=== PATIENT | female | born 1955 | race Caucasian/White ===

== ENCOUNTER 2017-01-15 10:34 | Emergency (ER) | payer BC ==
[~2017-01-15] VITALS: Ht 170.2 cm; Wt 81.6 kg
--- NOTE | 2017-01-15 10:45 | EKG ---
[facility] [address] [place] [address] Test Date: 2017-01-15 Test Time: 10:41:29 Pat Name: TAYLOR LUIS Department: Room: Gender: F Manager Copy: : 1955 Requested By: KEVIN COATES Order Number: [id number] Reading MD: Measurements Intervals [place] Rate: 80 P: 52 VT: 136 QRS: -21 QRSD: 82 T: 111 QT: 408 QTc: 474 Interpretive Statements SINUS RHYTHM LEFT ATRIAL ABNORMALITY LEFTWARD AXIS T ABNORMALITY IN HIGH LATERAL LEADS PROLONGED QT RI6.01 Unconfirmed report No previous ECG available for comparison
--- NOTE | 2017-01-15 11:05 | PHYS DOC ---
Past Medical History Past Medical History: Diabetes-Type II, Hypertension Past Surgical History: Hysterectomy, Tonsillectomy, Other Additional Past Surgical Histo: KNEE X 2 Alcohol Use: None Drug Use: None Adult General Chief Complaint Chief Complaint: dizzy, headache HPI HPI Patient is a 61 year old female who presents with dizziness. Patient states she woke up with "the room's pain my head aching". It does worsen when she moves around but is still present when she lays still. Denies previous similar symptoms, no recent illness. She admits that she has a history of diabetes and hypertension and has not been taking her medications for over a year due to financial reasons. Previously seen by Dr. Haven Campoverde but hasn't seen her in 2 years. She came in by EMS. Denies any focal weakness. Review of Systems Review of Systems Constitutional: Denies fever or chills [] Eyes: Denies change in visual acuity, redness, or eye pain [] HENT: Denies nasal congestion or sore throat [] Respiratory: Denies cough or shortness of breath [] Cardiovascular: Denies chest pain GI: Denies abdominal pain, nausea, vomiting, bloody stools or diarrhea [] : Denies dysuria or hematuria [] Musculoskeletal: Denies back pain or joint pain [] Integument: Denies rash or skin lesions [] Neurologic: Per history of present illness Current Medications Current Medications Current Medications Medications (Trade) Dose Ordered Sig/Kenyatta Start Time Stop Time Status Last Admin Dose Admin Diazepam (Valium) 2.5 mg 1X ONCE 01/15/17 13:30 01/15/17 13:31 DC 01/15/17 13:27 2.5 MG Hydralazine HCl (Apresoline) 10 mg 1X ONCE 01/15/17 11:15 01/15/17 11:16 DC 01/15/17 11:17 10 MG Meclizine HCl (Antivert) 25 mg 1X ONCE 01/15/17 11:15 01/15/17 11:16 DC 01/15/17 11:15 25 MG Allergies Allergies Allergies Coded Allergies Type Severity Reaction Last Updated Verified No Known Drug Allergies 01/15/17 No Physical Exam Physical Exam Constitutional: Well developed, well nourished, no acute distress, non-toxic appearance. [] HENT: Normocephalic, atraumatic, bilateral external ears normal, oropharynx moist, no oral exudates, nose normal. [] Eyes: PERRLA, EOMI, conjunctiva normal, no discharge. [] Neck: Normal range of motion, no tenderness, supple, no stridor. [] Cardiovascular:Heart rate regular rhythm, no murmur [] Lungs & Thorax: Bilateral breath sounds clear to auscultation [] Abdomen: Bowel sounds normal, soft, no tenderness, no masses, no pulsatile masses. [] Skin: Warm, dry, no erythema, no rash. [] Back: No tenderness, no CVA tenderness. [] Extremities: No tenderness, no cyanosis, no clubbing, ROM intact, no edema. [] Neurologic: Alert and oriented X 3, normal motor function, normal sensory function, no focal deficits noted. 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 Psychologic: Affect normal, judgement normal, mood normal. [] Current Patient Data Vital Signs Vital Signs Date Time Temp Pulse Resp B/P (MAP) Pulse Ox O2 Delivery O2 Flow Rate FiO2 01/15/17 14:10 90 17 185/89 (121) 95 Room Air 01/15/17 10:34 97.5 97.5 Lab Values Laboratory Tests Test 01/15/17 11:01 01/15/17 11:40 01/15/17 13:00 Glucose (Fingerstick) 287 mg/dL (70-99) H White Blood Count 9.6 x10^3/uL (4.0-11.0) Red Blood Count 4.98 x10^6/uL (3.50-5.40) Hemoglobin 15.0 g/dL (12.0-15.5) Hematocrit 45.0 % (36.0-47.0) Mean Corpuscular Volume 90 fL (79-100) Mean Corpuscular Hemoglobin 30 pg (25-35) Mean Corpuscular Hemoglobin Concent 33 g/dL (31-37) Red Cell Distribution Width 13.7 % (11.5-14.5) Platelet Count 243 x10^3/uL (140-400) Neutrophils (%) (Auto) 77 % (31-73) H Lymphocytes (%) (Auto) 16 % (24-48) L Monocytes (%) (Auto) 6 % (0-9) Eosinophils (%) (Auto) 1 % (0-3) Basophils (%) (Auto) 0 % (0-3) Neutrophils # (Auto) 7.3 x10^3uL (1.8-7.7) Lymphocytes # (Auto) 1.5 x10^3/uL (1.0-4.8) Monocytes # (Auto) 0.6 x10^3/uL (0.0-1.1) Eosinophils # (Auto) 0.1 x10^3/uL (0.0-0.7) Basophils # (Auto) 0.0 x10^3/uL (0.0-0.2) Sodium Level 139 mmol/L (136-145) Potassium Level 4.4 mmol/L (3.5-5.1) Chloride Level 99 mmol/L (98-107) Carbon Dioxide Level 33 mmol/L (21-32) H Anion Gap 7 (6-14) Blood Urea Nitrogen 11 mg/dL (7-20) Creatinine 0.7 mg/dL (0.6-1.0) Estimated GFR (Cockcroft-Gault) 84.8 BUN/Creatinine Ratio 16 (6-20) Glucose Level 307 mg/dL (70-99) H Calcium Level 9.6 mg/dL (8.5-10.1) Magnesium Level 1.9 mg/dL (1.8-2.4) Total Bilirubin 0.4 mg/dL (0.2-1.0) Aspartate Amino Transferase (AST) 24 U/L (15-37) Alanine Aminotransferase (ALT) 32 U/L (14-59) Alkaline Phosphatase 127 U/L (46-116) H Troponin I Quantitative < 0.017 ng/mL (0.000-0.055) Total Protein 7.4 g/dL (6.4-8.2) Albumin 3.7 g/dL (3.4-5.0) Albumin/Globulin Ratio 1.0 (1.0-1.7) Urine Collection Type Unknown Urine Color Yellow Urine Clarity Clear Urine pH 7.0 Urine Specific [place] 1.015 Urine Protein Negative mg/dL (NEG-TRACE) Urine Glucose (UA) >=1000 mg/dL (NEG) Urine Ketones (Stick) Trace mg/dL (NEG) Urine Blood Negative (NEG) Urine Nitrite Negative (NEG) Urine Bilirubin Negative (NEG) Urine Urobilinogen Dipstick 0.2 mg/dL (0.2 mg/dL) Urine Leukocyte Esterase Negative (NEG) Urine RBC 0 /HPF (0-2) Urine WBC Rare /HPF (0-4) Urine Squamous Epithelial Cells Many /LPF Urine Bacteria 0 /HPF (0-FEW) Laboratory Tests 01/15/17 11:40 Laboratory Tests 01/15/17 11:40 EKG EKG 80 bpm, sinus, normal axis, QTC of 474, no ST elevation or depression, T-wave inversion in aVL, biphasic T-wave in 1, interpreted by me[] Radiology/Procedures Radiology/Procedures CT head: IMPRESSION: No acute intracranial abnormality is detected. [] Course & Med Decision Making Course & Med Decision Making Pertinent Labs and Imaging studies reviewed. (See chart for details) She was given IV meclizine and hydralazine. I counseled patient on the need to take hypertension medication as prescribed and follow-up with primary care physician. Pt reported improvement of symptoms. She was able to walk to the bathroom and to discharge patient home when symptoms returned. IV Valium was given and patient was observed for another period of time. She now felt good to go home, CT and lab work negative with exception of elevated blood sugar. I again counseled patient on the need to take medications and follow-up with primary care physician. I rewrote her for lisinopril and metformin and instructed her to follow up with her doctor in the next week. Patient was also given prescription for meclizine. Dragon Disclaimer Dragon Disclaimer This electronic medical record was generated, in whole or in part, using a voice recognition dictation system. Departure Departure Impression: Primary Impression: Vertigo Additional Impressions: Hypertension Hyperglycemia Medical non-compliance Disposition: HOME, SELF-CARE Condition: STABLE Scripts Metformin Hcl (METFORMIN HCL) 500 Mg Tablet 500 MG PO BIDWMEALS for ANTI-DIABETIC, #60 TAB 0 Refills After 1 week increase to 2 tabs po bid Prov: KEVIN COATES MD 01/15/17 Lisinopril (LISINOPRIL) 10 Mg Tablet 1 TAB PO DAILY, #30 TAB 0 Refills Prov: KEVIN COATES MD 01/15/17 Meclizine Hcl (MECLIZINE HCL) 25 Mg Tablet 25 MG PO PRN TID Y for DIZZINESS, #30 TAB dizziness Prov: KEVIN COATES MD 01/15/17 Problem Qualifiers KEVIN COATES MD Jan 15, 2017 11:05
[2017-01-15] MEDS ORDERED: MECLIZINE HCL 12.5 MG TABLET. PO ONE (11:15)
[2017-01-15] MEDS ORDERED: hydrALAZINE 20 MG/ML VIAL. IVP ONE (11:15)
[2017-01-15 11:59] LABS: BASO % 0 % (0-3); EOS % 1 % (0-3); LYMPH # 1.5 x10^3/uL (1.0-4.8); LYMPH % 16 % (24-48); MEAN CORPUSCULAR HEMOGLOBIN 30 pg (25-35); MEAN CORPUSCULAR HGB CONC 33 g/dL (31-37); MEAN CORPUSCULAR VOLUME 90 fL (79-100); MONO % 6 % (0-9); NEUT % 77 % (31-73); PLATELET COUNT 243 x10^3/uL (140-400); RED BLOOD COUNT 4.98 x10^6/uL (3.50-5.40); RED CELL DISTRIBUTION WIDTH 13.7 % (11.5-14.5); WHITE BLOOD COUNT 9.6 x10^3/uL (4.0-11.0)
[2017-01-15 12:06] LABS: CALCIUM 9.6 mg/dL (8.5-10.1); CREATININE 0.7 mg/dL (0.6-1.0); GFR 84.8; POTASSIUM 4.4 mmol/L (3.5-5.1)
--- NOTE | 2017-01-15 12:06 | RAD ---
CT of the head without contrast, 01/15/2017: History: Dizziness, headache The ventricles are within normal limits in size. There is no shift of the midline structures. There is no evidence of acute intracranial hemorrhage or mass effect. IMPRESSION: No acute intracranial abnormality is detected. PQRS Compliance Statement: One or more of the following individualized dose reduction techniques were utilized for this examination: 1. Automated exposure control 2. Adjustment of the mA and/or kV according to patient size 3. Use of iterative reconstruction technique
[2017-01-15 12:13] LABS: ALBUMIN 3.7 g/dL (3.4-5.0); MAGNESIUM 1.9 mg/dL (1.8-2.4); TOTAL BILIRUBIN 0.4 mg/dL (0.2-1.0); TOTAL PROTEIN 7.4 g/dL (6.4-8.2)
[2017-01-15] MEDS ORDERED: METF500T4 PO (13:08)
[2017-01-15] MEDS ORDERED: MECL25TA3 PO (13:08)
[2017-01-15] MEDS ORDERED: LISI10TA2 PO (13:08)
[2017-01-15 13:48] LABS: BILIRUBIN,URINE NEGATIVE (NEG); GLUCOSE,URINE >=1000 mg/dL (NEG); NITRITE,URINE NEGATIVE (NEG); PROTEIN,URINE NEGATIVE (NEG-TRACE); UROBILINOGEN,URINE 0.2 mg/dL (0.2 mg/dL)
[2017-01-15 14:02] LABS: BACTERIA,URINE 0 /HPF (0-FEW); RBC,URINE 0 /HPF (0-2); SQUAMOUS EPITHELIAL CELL,UR MANY /LPF; WBC,URINE RARE /HPF (0-4)
[2017-01-15 14:10] VITALS: BP 185/89
== END 2017-01-15 14:14 | disposition home or self-care (01) ==
LOC: ER 10:34
DX: I10 Essential (primary) hypertension (principal); E11.65 Type 2 diabetes mellitus with hyperglycemia; Z91.19 Patient's noncompliance with other medical treatment and regimen; Z90.710 Acquired absence of both cervix and uterus
CPT/HCPCS: 36415; 70450; 80053; 81001; 82962; 83735; 84484; 85025; 93005; 96374; 96375; 99285; J0360; J3360; J8597

== ENCOUNTER → 2017-01-17 | Outpatient (CLI) | payer BC ==
[2017-01-15 14:10] VITALS: BP 185/89
[~2017-01-17] MED LIST: LISI10TA2 PO; MECL25TA3 PO; METF500T4 PO
--- NOTE | 2017-01-17 12:17 | RAD ---
DATE: 01/17/2017 EXAM: MAMMO [facility] SCREENING BILATERAL HISTORY: Screening COMPARISON: None. FINDINGS: Breast Density: SCATTERED The breast parenchyma shows scattered fibroglandular densities. Breast parenchyma level B. No dominant mass is seen in either breast. Lymph nodes are noted in the right axilla. Benign-appearing calcifications are noted. IMPRESSION: Benign finding BI-RADS CATEGORY: 2 BENIGN FINDING(S) RECOMMENDED FOLLOW-UP: 12M 12 MONTH FOLLOW-UP PQRS compliance statement: Patient information was entered into a reminder system with a target due date 01/17/2018 for the next mammogram. Mammography is a sensitive method for finding small breast cancers, but it does not detect them all and is not a substitute for careful clinical examination. A negative mammogram does not negate a clinically suspicious finding and should not result in delay in biopsying a clinically suspicious abnormality. "Our facility is accredited by the [employer] Mammography Program."
== END | disposition home or self-care (01) ==
LOC: KCIC MAMMO 10:01
PROVIDERS: ATTEND Family Medicine
DX: Z12.31 Encounter for screening mammogram for malignant neoplasm of breast (principal)
CPT/HCPCS: 77063; G0202; 77067

== ENCOUNTER → 2019-08-19 | Outpatient (CLI) | payer BC ==
[~2019-08-19] MED LIST changes: +AMLO2.5T5 PO; +ATOR80TA72 PO; +HYDR12.58 PO; +IOHEXOL 240 MG/ML 50ML VIAL. PO ONE; +IOHEXOL 300 MG/ML 100ML VIAL. IV ONE; +LOSA-73 PO; +MECL-75 PO; -MECL25TA3 PO; +METF500T16 PO; -METF500T4 PO; +SITA50TA PO
--- NOTE | 2019-08-19 12:12 | KCIC ---
CT ABDOMEN W/CONTRAST History: Left upper quadrant abdominal pain for 2 weeks Comparison: None. Technique: After administration of intravenous contrast, helical CT of the abdomen was performed. Coronal and sagittal reconstructions were obtained. 100 mL of Isovue-370 were used. One or more of the following dose reduction techniques were utilized: Automated exposure control (AEC), Adjustment of mA and/or kV according to patient size, Use of iterative reconstruction technique such as ASiR, CT scan done according to ALARA and image gently/image wisely Abdomen Findings: The visualized lung bases are clear. Right hepatic circumscribed hypodensity measuring 1.3 cm, likely a cyst or hemangioma. The liver, gallbladder, pancreas, spleen, and bilateral adrenal glands are otherwise normal. Symmetric renal enhancement. There is no hydronephrosis. The visualized loops of small bowel are normal. The visualized loops of large bowel are normal. There is no free fluid. There is no mesenteric or retroperitoneal adenopathy. The abdominal aorta is normal in caliber. Mild aortic atherosclerotic disease. IMPRESSION: No acute findings Electronically signed by: Junaid Wiley MD (08/19/2019 12:09 PM) [id number]
== END ==
LOC: KCIC CT 09:45
PROVIDERS: ATTEND Emergency Medicine
DX: I70.0 Atherosclerosis of aorta (principal)
CPT/HCPCS: 74160; 82565; Q9966; Q9967

== ENCOUNTER 2020-05-16 20:40 | Inpatient (IN) | payer BC, MEDICARE ==
[~2020-05-16] VITALS: Ht 167.6 cm; Wt 72.2 kg
[~2020-05-16 20:40] MED LIST changes: -IOHEXOL 240 MG/ML 50ML VIAL. PO ONE; -IOHEXOL 300 MG/ML 100ML VIAL. IV ONE; +LISI10TA16 PO; -LISI10TA2 PO
--- NOTE | 2020-05-16 21:04 | PHYS DOC ---
Past Medical History Past Medical History: Diabetes-Type II, Hypertension Past Surgical History: Hysterectomy, Tonsillectomy, Other Additional Past Surgical Histo: KNEE X 2 Smoking Status: Never Smoker Alcohol Use: None Drug Use: None General Adult HPI: HPI: Patient is a 65 year old female with a history of diabetes type 2, hypertension, who presents the ED today complaining of mild to moderate intermittent bilateral lower chest pain wrapping around her back, symptoms have been going on for 3 weeks and got worse today. Patient states the pain is sharp and constant. She states the pain is worse when she is propelling herself in a wheelchair. Patient denies anything relieving her pain. Patient reports following up with her PCP for this pain and was started on hydrocodone, tizanidine, gabapentin and meloxicam. She states none of this medications are helping. She states also the PCP did a big work-up on her which she felt was not helpful because it was negative. Denies any fever, cough, chest pain, pneumaturia, urgency frequency or dysuria. Review of Systems: Review of Systems: Constitutional: Denies fever or chills. [] Eyes: Denies change in visual acuity. [] HENT: Denies nasal congestion or sore throat. [] Respiratory: Denies cough or shortness of breath. [] Cardiovascular: Reports chest pain or edema. [] GI: Denies abdominal pain, nausea, vomiting, bloody stools or diarrhea. [] : Denies dysuria. [] Musculoskeletal: Denies back pain or joint pain. [] Integument: Denies rash. [] Neurologic: Denies headache, focal weakness or sensory changes. [] . [] Psychiatric: Denies depression or anxiety. [] Heart Score: HEART Score for Chest Pain: HEART Score for Chest Pain Response (Comments) Value History Slighlty/Non-Suspicious 0 ECG Normal 0 Age < 45 0 Risk Factors >3 Risk Factors or Hx CAD 2 Troponin < Normal Limit 0 Total 2 Risk Factors: Risk Factors: DM, Current or recent (<one month) smoker, HTN, HLP, family history of CAD, obesity. Risk Scores: Score 0 - 3: 2.5% MACE over next 6 weeks - Discharge Home Score 4 - 6: 20.3% MACE over next 6 weeks - Admit for Clinical Observation Score 7 - 10: 72.7% MACE over next 6 weeks - Early Invasive Strategies Current Medications: Current Medications Medications (Trade) Dose Ordered Sig/[facility] Start Time Stop Time Status Last Admin Dose Admin Aspirin (Min Aspirin) 325 mg 1X ONCE 05/16/20 21:00 05/16/20 21:01 UNV Sodium Chloride 1,000 ml @ 1,000 mls/hr 1X ONCE 05/16/20 21:00 05/16/20 21:59 UNV Allergies: Allergies: Allergies Coded Allergies Type Severity Reaction Last Updated Verified No Known Drug Allergies 01/15/17 No Physical Exam: PE: Constitutional: Well developed, well nourished, no acute distress, non-toxic appearance. [] HENT: Normocephalic, atraumatic, bilateral external ears normal, oropharynx moist, no oral exudates, nose normal. [] Eyes: PERRLA, EOMI, conjunctiva normal, no discharge. [] Neck: Normal range of motion, no tenderness, supple, no stridor. [] Cardiovascular:Heart rate regular rhythm, no murmur [] Lungs & Thorax: Reproducible pain around her bilateral anterior ribs all the way to her mid back on palpation. Patient seems to complain of pain even before touching her, bilateral breath sounds clear to auscultation [] Abdomen: Bowel sounds normal, soft, no tenderness, no masses, no pulsatile masses. [] Skin: Warm, dry, no erythema, no rash. [] Back: No tenderness, no CVA tenderness. [] Extremities: No tenderness, no cyanosis, no clubbing, ROM intact, no edema. [] Neurologic: Alert and oriented X 3, normal motor function, normal sensory function, no focal deficits noted. [] Psychologic: Flat affect, depressed mood EKG: EKG: [] Radiology/Procedures: Radiology/Procedures: []PROCEDURE: CT ANGIO CHEST ABD PELVIS Examination: CT angiography chest abdomen pelvis with IV contrast HISTORY: Pain, dissection COMPARISON: None available TECHNIQUE: Axial CT angiographic images of the chest abdomen pelvis were performed with IV contrast and coronal sagittal 3-D MIP reformats are performed. Exposure: One or more of the following individualized dose reduction techniques were utilized for this examination: 1. Automated exposure control 2. Adjustment of the mA and/or kV according to patient size 3. Use of iterative reconstruction technique FINDINGS: The visualized thyroid gland grossly appears unremarkable. Central airways are patent. The caliber of the aorta grossly appears unremarkable. No evidence of aortic dissection identified. The origin of the celiac, superior mesenteric, inferior mesenteric and bilateral renal arteries are patent. The bilateral kidneys enhance symmetrically. There is a cystic structure identified in the right lobe of the liver could be a cyst or hemangioma measuring 1.4 cm. The visualized spleen, pancreas grossly appears unremarkable. Mild hyperdensity identified in the upper esophagus best seen on series 3 image 20 could be hyperdense ingested material however blood in the esophagus is not completely excluded. The bilateral kidneys enhance symmetrically. The small bowel is nondilated. Moderate amount of stool identified throughout the colon. Urinary bladder is mildly distended Faint airspace opacities identified in the right middle lobe and bibasilar lungs likely atelectasis or infiltrates. Mild degenerative changes thoracic and lumbar spine. IMPRESSION: 1. No evidence of aortic dissection. 2.Mild hyperdensity identified in the upper esophagus best seen on series 3 image 20 could be hyperdense ingested material however blood in the esophagus is not completely excluded 3. Linear airspace opacities identified in the right middle lobe of the bibasilar lungs likely atelectasis or infiltrates 4. A cystic structure identified in the right lobe of the liver could be a cyst or hemangioma measuring 1.4 cm. Electronically signed by: Tapan Peralta MD (05/16/2020 11:11 PM) [id number] DICTATED and SIGNED BY: TAPAN PERALTA MD DATE: 05/16/20 [id number] 0 Course & Med Decision Making: Course & Med Decision Making Pertinent Labs and Imaging studies reviewed. (See chart for details) This is a 65-year-old female patient presenting to the ED today complaining of bilateral lower chest pain radiating to her mid back, symptoms began 3 weeks ago, symptoms are worse when she is propelling herself [place] [facility]. She has been seen by her PCP and had a big work-up that she states was negative, she states she was started on hydrocodone, gabapentin, meloxicam and tizanidine which she states is not helping. She refused to take her hydrocodone today. Patient arrived in the ED with blood pressure of 89/52, heart rate of 64, height unknown if she took her blood pressure medicine prior to coming to the ED. EKG is negative, CBC with no acute findings, CMP with magnesium of 1.3. IV magnesium was ordered. CT angio of the chest abdomen and pelvis was done to rule out dissection, negative for dissection, CT also noted for mild hyperdensity identified in the upper esophagus best seen on series 3 image 20 could be hyperdense ingested material however blood in the esophagus is not completely excluded. Patient has no esophagus complaints. Airways open and currently tolerating her own secretions with no difficulties. CT also noted for opacities identified in the right middle lobe of the bibasilar lungs likely atelectasis or infiltrates and cystic structure identified in the right lobe of the liver could be a cyst or hemangioma measuring 1.4 cm. Admitted to the hospital. Dr. Monet will give morning doctor report. Routine consult placed for cardiology. Marisela Disclaimer: Marisela Disclaimer: This electronic medical record was generated, in whole or in part, using a voice recognition dictation system. Departure Departure Impression: Primary Impression: Chest pain Qualified Codes: R07.9 - Chest pain, unspecified Additional Impressions: Hypertension Qualified Codes: I10 - Essential (primary) hypertension Person under investigation for COVID-19 Disposition: 09 ADMITTED INPT THIS HOSP Condition: STABLE Referrals: YESSY BAUGH MD (PCP) JORDI VEGA APRN May 16, 2020 21:04
[2020-05-16 21:15] LABS: BASO # 0.1 x10^3/uL (0.0-0.2); BASO % 1 % (0-3); EOS # 1.1 x10^3/uL (0.0-0.7); EOS % 11 % (0-3); HEMATOCRIT 34.2 % (36.0-47.0); HEMOGLOBIN 11.7 g/dL (12.0-15.5); LYMPH # 1.8 x10^3/uL (1.0-4.8); LYMPH % 18 % (24-48); MEAN CORPUSCULAR HEMOGLOBIN 30 pg (25-35); MEAN CORPUSCULAR HGB CONC 34 g/dL (31-37); MEAN CORPUSCULAR VOLUME 89 fL (79-100); MONO # 0.5 x10^3/uL (0.0-1.1); MONO % 5 % (0-9); NEUT # 6.8 x10^3/uL (1.8-7.7); NEUT % 66 % (31-73); PLATELET COUNT 274 x10^3/uL (140-400); RED BLOOD COUNT 3.85 x10^6/uL (3.50-5.40); RED CELL DISTRIBUTION WIDTH 13.7 % (11.5-14.5); WHITE BLOOD COUNT 10.4 x10^3/uL (4.0-11.0)
[2020-05-16] MEDS ORDERED: ASPIRIN 325 MG TABLET PO ONE (21:15)
[2020-05-16] MEDS ORDERED: IV NORMAL SALINE 1000ML BAG 1,000 ML IV ONE (21:15)
[2020-05-16 21:23] LABS: PROTHROMBIN TIME PATIENT 12.3 SEC (11.7-14.0)
[2020-05-16 21:29] LABS: CALCIUM 9.2 mg/dL (8.5-10.1); CREATININE 1.2 mg/dL (0.6-1.0); GFR 44.9; POTASSIUM 4.7 mmol/L (3.5-5.1)
[2020-05-16 21:33] LABS: ALBUMIN 3.3 g/dL (3.4-5.0); MAGNESIUM 1.3 mg/dL (1.8-2.4); TOTAL BILIRUBIN 0.3 mg/dL (0.2-1.0); TOTAL PROTEIN 6.7 g/dL (6.4-8.2)
[2020-05-16] MEDS ORDERED: IOHEXOL 350 MG/ML 100 ML VIAL. IV ONE (21:45)
[2020-05-16] MEDS ORDERED: CONTRAST GIVEN. MC PRN (21:45)
[2020-05-16] MEDS ORDERED: MAGNESIUM SULFATE 1GM 100 ML IV ONE (21:45)
[2020-05-16 22:46] LABS: % BANDS 4 % (0-9); % EOS 13 % (0-5); % LYMPHS 16 % (24-48); % MONOS 1 % (0-10); % SEGS 66 % (35-66); PLT ESTIMATE ADEQUATE (ADEQUATE)
--- NOTE | 2020-05-16 23:14 | RAD ---
Examination: CT angiography chest abdomen pelvis with IV contrast HISTORY: Pain, dissection COMPARISON: None available TECHNIQUE: Axial CT angiographic images of the chest abdomen pelvis were performed with IV contrast a nd coronal sagittal 3-D MIP reformats are performed. Exposure: One or more of the following individualized dose reduction techniques were utilized for thi s examination: 1. Automated exposure control 2. Adjustment of the mA and/or kV according to patient size 3. Use of iterative reconstruction technique FINDINGS: The visualized thyroid gland grossly appears unremarkable. Central airways are patent. The caliber of the aorta grossly appears unremarkable. No evidence of aortic dissection identified. The origin of t he celiac, superior mesenteric, inferior mesenteric and bilateral renal arteries are patent. The bila teral kidneys enhance symmetrically. There is a cystic structure identified in the right lobe of the liver could be a cyst or hemangioma m easuring 1.4 cm. The visualized spleen, pancreas grossly appears unremarkable. Mild hyperdensity identified in the upp er esophagus best seen on series 3 image 20 could be hyperdense ingested material however blood in th e esophagus is not completely excluded. The bilateral kidneys enhance symmetrically. The small bowel is nondilated. Moderate amount of stool identified throughout the colon. Urinary bladder is mildly di stended Faint airspace opacities identified in the right middle lobe and bibasilar lungs likely atelectasis o r infiltrates. Mild degenerative changes thoracic and lumbar spine. IMPRESSION: 1. No evidence of aortic dissection. 2.Mild hyperdensity identified in the upper esophagus best seen on series 3 image 20 could be hyperde nse ingested material however blood in the esophagus is not completely excluded 3. Linear airspace opacities identified in the right middle lobe of the bibasilar lungs likely atelec tasis or infiltrates 4. A cystic structure identified in the right lobe of the liver could be a cyst or hemangioma measuri ng 1.4 cm. Electronically signed by: Tapan Peralta MD (05/16/2020 11:11 PM) [id number]
[2020-05-16] MEDS ORDERED: ONDANSETRON PF 4 MG/2 ML VIAL. IV PRN (23:30)
[2020-05-16] MEDS ORDERED: NITROGLYCERIN SUBLINGUAL 0.4 MG BOTTLE OF 25. SL PRN (23:30)
[2020-05-17 00:20] LABS: BILIRUBIN,URINE NEGATIVE (NEG); CLARITY,URINE CLEAR; COLOR,URINE YELLOW; NITRITE,URINE NEGATIVE (NEG); PROTEIN,URINE NEGATIVE (NEG-TRACE); UROBILINOGEN,URINE 0.2 mg/dL (0.2 mg/dL)
[2020-05-17 00:27] LABS: BARBITURATES NEG (NEG); BENZODIAZEPINES NEG (NEG); CANNABINOIDS NEG (NEG); COCAINE NEG (NEG); METHADONE NEG (NEG); OPIATES POS (NEG); PHENCYCLIDINE NEG (NEG)
[2020-05-17 00:29] LABS: BACTERIA,URINE 0 /HPF (0-FEW); RBC,URINE 0 /HPF (0-2)
[2020-05-17 00:32] LABS: AMPHETAMINE/METHAMPHETAMINE NEG (NEG)
[2020-05-17] MEDS: fentaNYL PF VIAL 100 MCG/2 ML VIAL IV PRN ×6 (01:18→20:59)
--- NOTE | 2020-05-17 03:48 | EKG ---
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
[2020-05-17] MEDS ORDERED: IOHEXOL 350 MG/ML 100 ML VIAL. ONE (05:05)
[2020-05-17 06:00] VITALS: BP 159/64
[2020-05-17] MEDS ORDERED: SITA100T PO (06:05)
[2020-05-17] MEDS ORDERED: METF10007 PO (06:05)
[2020-05-17] MEDS ORDERED: MELO15TA23 PO (06:05)
[2020-05-17] MEDS ORDERED: LOSA100T14 PO (06:05)
[2020-05-17] MEDS ORDERED: HYDR-2761 PO (06:05)
[2020-05-17] MEDS ORDERED: GABA-689 PO (06:05)
[2020-05-17] MEDS ORDERED: METO-239 PO (06:05)
[2020-05-17] MEDS ORDERED: PANT20TA2 PO (06:08)
[2020-05-17] MEDS ORDERED: TIZA4TAB2 PO (06:08)
[2020-05-17] MEDS ORDERED: AMLO-187 PO (06:08)
[2020-05-17] MEDS ORDERED: ATOR40TA59 PO (06:08)
[2020-05-17 07:28] LABS: ALBUMIN/GLOBULIN RATIO 0.8 (1.0-1.7); CALCIUM 9.3 mg/dL (8.5-10.1); CREATININE 0.9 mg/dL (0.6-1.0); GFR 62.6; POTASSIUM 3.9 mmol/L (3.5-5.1); TOTAL BILIRUBIN 0.3 mg/dL (0.2-1.0); TOTAL PROTEIN 6.9 g/dL (6.4-8.2)
[2020-05-17 08:35] LABS: BASO % 0 % (0-3); EOS # 1.2 x10^3/uL (0.0-0.7); EOS % 12 % (0-3); HEMATOCRIT 37.5 % (36.0-47.0); HEMOGLOBIN 12.6 g/dL (12.0-15.5); LYMPH % 21 % (24-48); MEAN CORPUSCULAR HEMOGLOBIN 30 pg (25-35); MEAN CORPUSCULAR HGB CONC 34 g/dL (31-37); MEAN CORPUSCULAR VOLUME 90 fL (79-100); MONO # 0.6 x10^3/uL (0.0-1.1); MONO % 6 % (0-9); NEUT # 5.9 x10^3/uL (1.8-7.7); NEUT % 61 % (31-73); PLATELET COUNT 288 x10^3/uL (140-400); RED BLOOD COUNT 4.17 x10^6/uL (3.50-5.40); RED CELL DISTRIBUTION WIDTH 13.9 % (11.5-14.5); WHITE BLOOD COUNT 9.7 x10^3/uL (4.0-11.0)
--- NOTE | 2020-05-17 10:53 | PDOC2 ---
BRITTANIE HOWARD HALEIGH 05/17/20 1052: CARDIAC CONSULT DATE OF CONSULT Date of Consult DATE: 05/17/20 TIME: 10:47 REASON FOR CONSULT Reason for Consult: Chest pain REFERRING PHYSICIAN Referring Physician: Yasmin Teran APRN SOURCE Source: Chart review, Patient HISTORY OF PRESENT ILLNESS HISTORY OF PRESENT ILLNESS This is a 65 yo female who presented secondary to chest pain. Patient reports constant pain in his rib area for the last 3 weeks. Wraps around from her left to her right side. Is significantly tender with palpation, movement. Also complaining of bilateral LE pain, which is chronic in nature. Denies any associated dizziness, diaphoresis, palpitations, SOA, or nausea/vomiting. PAST MEDICAL HISTORY Cardiovascular: HTN, Hyperlipidemia GI: GERD Endocrine: Diabetes PAST SURGICAL HISTORY Past Surgical History: No pertinent history FAMILY HISTORY Family History: Diabetes SOCIAL HISTORY Smoke: No ALCOHOL: none Drugs: None Lives: Care Home (Assisted Living ) CURRENT MEDICATIONS CURRENT MEDICATIONS Current Medications Medications (Trade) Dose Ordered Sig/Kenyatta Route PRN Reason Start Time Stop Time Status Last Admin Dose Admin Aspirin (Min Aspirin) 325 mg 1X ONCE PO 05/16/20 21:15 05/16/20 21:16 DC 05/16/20 21:16 Sodium Chloride 1,000 ml @ 1,000 mls/hr 1X ONCE IV 05/16/20 21:15 05/16/20 22:14 DC 05/16/20 21:17 Magnesium Sulfate/ Dextrose 100 ml @ 100 mls/hr 1X ONCE IV 05/16/20 21:45 05/16/20 22:44 DC 05/16/20 21:54 Iohexol (Omnipaque 350 Mg/ml) 80 ml 1X ONCE IV 05/16/20 21:45 05/16/20 21:46 DC 05/16/20 22:36 Fentanyl Citrate (Fentanyl 2ml Vial) 50 mcg PRN Q1HR PRN IV PAIN 05/16/20 23:30 05/17/20 23:29 05/17/20 08:30 ALLERGIES ALLERGIES: Coded Allergies: No Known Drug Allergies (Unverified , 01/15/17) ROS Review of System 14 point ROS conducted with pertinent positives noted above in hPI PHYSICAL EXAM General: Alert, Oriented X3, Cooperative, No acute distress HEENT: Atraumatic Lungs: Clear to auscultation, Other (rib tenderness upon even light palpation) Heart: Regular rate Abdomen: Soft, No tenderness Extremities: No edema, Normal pulses, Other (tenderness to palpation ) Skin: No significant lesion Neuro: Normal speech, Sensation intact Psych/Mental Status: Mental status NL, Mood NL VITALS/I&O VITALS/I&O: Vital Signs Date Time Temp Pulse Resp B/P (MAP) Pulse Ox O2 Delivery O2 Flow Rate FiO2 05/17/20 08:30 18 100 Nasal Cannula 2.0 05/17/20 06:00 98.4 72 159/64 (95) 98.4 l I & O 05/16/20 05/16/20 05/17/20 15:00 23:00 07:00 Intake Total 1000 ml Balance 1000 ml LABS Lab: Laboratory Tests Test 05/16/20 21:00 05/17/20 00:10 05/17/20 01:15 05/17/20 04:30 White Blood Count 10.4 x10^3/uL (4.0-11.0) Red Blood Count 3.85 x10^6/uL (3.50-5.40) Hemoglobin 11.7 g/dL (12.0-15.5) L Hematocrit 34.2 % (36.0-47.0) L Mean Corpuscular Volume 89 fL (79-100) Mean Corpuscular Hemoglobin 30 pg (25-35) Mean Corpuscular Hemoglobin Concent 34 g/dL (31-37) Red Cell Distribution Width 13.7 % (11.5-14.5) Platelet Count 274 x10^3/uL (140-400) Neutrophils (%) (Auto) 66 % (31-73) Lymphocytes (%) (Auto) 18 % (24-48) L Monocytes (%) (Auto) 5 % (0-9) Eosinophils (%) (Auto) 11 % (0-3) H Basophils (%) (Auto) 1 % (0-3) Neutrophils # (Auto) 6.8 x10^3/uL (1.8-7.7) Lymphocytes # (Auto) 1.8 x10^3/uL (1.0-4.8) Monocytes # (Auto) 0.5 x10^3/uL (0.0-1.1) Eosinophils # (Auto) 1.1 x10^3/uL (0.0-0.7) H Basophils # (Auto) 0.1 x10^3/uL (0.0-0.2) Segmented Neutrophils % 66 % (35-66) Band Neutrophils % 4 % (0-9) Lymphocytes % 16 % (24-48) L Monocytes % 1 % (0-10) Eosinophils % 13 % (0-5) H Platelet Estimate Adequate (ADEQUATE) Prothrombin Time 12.3 SEC (11.7-14.0) Prothrombin Time INR 1.0 (0.8-1.1) Sodium Level 141 mmol/L (136-145) 142 mmol/L (136-145) Potassium Level 4.7 mmol/L (3.5-5.1) 3.9 mmol/L (3.5-5.1) Chloride Level 103 mmol/L (98-107) 105 mmol/L (98-107) Carbon Dioxide Level 29 mmol/L (21-32) 26 mmol/L (21-32) Anion Gap 9 (6-14) 11 (6-14) Blood Urea Nitrogen 28 mg/dL (7-20) H 22 mg/dL (7-20) H Creatinine 1.2 mg/dL (0.6-1.0) H 0.9 mg/dL (0.6-1.0) Estimated GFR (Cockcroft-Gault) 44.9 62.6 BUN/Creatinine Ratio 23 (6-20) H 24 (6-20) H Glucose Level 121 mg/dL (70-99) H 98 mg/dL (70-99) Calcium Level 9.2 mg/dL (8.5-10.1) 9.3 mg/dL (8.5-10.1) Magnesium Level 1.3 mg/dL (1.8-2.4) L Total Bilirubin 0.3 mg/dL (0.2-1.0) 0.3 mg/dL (0.2-1.0) Aspartate Amino Transferase (AST) 18 U/L (15-37) 18 U/L (15-37) Alanine Aminotransferase (ALT) 23 U/L (14-59) 19 U/L (14-59) Alkaline Phosphatase 89 U/L (46-116) 75 U/L (46-116) Troponin I Quantitative < 0.017 ng/mL (0.000-0.055) < 0.017 ng/mL (0.000-0.055) < 0.017 ng/mL (0.000-0.055) QH-Uim-V-Type Natriuretic Peptide 787 pg/mL (0-124) H Total Protein 6.7 g/dL (6.4-8.2) 6.9 g/dL (6.4-8.2) Albumin 3.3 g/dL (3.4-5.0) L 3.0 g/dL (3.4-5.0) L Albumin/Globulin Ratio 1.0 (1.0-1.7) 0.8 (1.0-1.7) L Thyroid Stimulating Hormone (TSH) 5.025 uIU/mL (0.358-3.74) H Urine Collection Type Unknown Urine Color Yellow Urine Clarity Clear Urine pH 7.0 (<5.0-8.0) Urine Specific [place] 1.025 (1.000-1.030) Urine Protein Negative mg/dL (NEG-TRACE) Urine Glucose (UA) Negative mg/dL (NEG) Urine Ketones (Stick) Negative mg/dL (NEG) Urine Blood Negative (NEG) Urine Nitrite Negative (NEG) Urine Bilirubin Negative (NEG) Urine Urobilinogen Dipstick 0.2 mg/dL (0.2 mg/dL) Urine Leukocyte Esterase Large (NEG) Urine RBC 0 /HPF (0-2) Urine WBC 11-20 /HPF (0-4) Urine Squamous Epithelial Cells Few /LPF Urine Bacteria 0 /HPF (0-FEW) Urine Mucus Slight /LPF Urine Opiates Screen Pos (NEG) Urine Methadone Screen Neg (NEG) Urine Barbiturates Neg (NEG) Urine Phencyclidine Screen Neg (NEG) Urine Amphetamine/Methamphetamine Neg (NEG) Urine Benzodiazepines Screen Neg (NEG) Urine Cocaine Screen Neg (NEG) Urine Cannabinoids Screen Neg (NEG) Urine Ethyl Alcohol Neg (NEG) Test 05/17/20 07:39 05/17/20 08:10 Glucose (Fingerstick) 99 mg/dL (70-99) White Blood Count 9.7 x10^3/uL (4.0-11.0) Red Blood Count 4.17 x10^6/uL (3.50-5.40) Hemoglobin 12.6 g/dL (12.0-15.5) Hematocrit 37.5 % (36.0-47.0) Mean Corpuscular Volume 90 fL (79-100) Mean Corpuscular Hemoglobin 30 pg (25-35) Mean Corpuscular Hemoglobin Concent 34 g/dL (31-37) Red Cell Distribution Width 13.9 % (11.5-14.5) Platelet Count 288 x10^3/uL (140-400) Neutrophils (%) (Auto) 61 % (31-73) Lymphocytes (%) (Auto) 21 % (24-48) L Monocytes (%) (Auto) 6 % (0-9) Eosinophils (%) (Auto) 12 % (0-3) H Basophils (%) (Auto) 0 % (0-3) Neutrophils # (Auto) 5.9 x10^3/uL (1.8-7.7) Lymphocytes # (Auto) 2.0 x10^3/uL (1.0-4.8) Monocytes # (Auto) 0.6 x10^3/uL (0.0-1.1) Eosinophils # (Auto) 1.2 x10^3/uL (0.0-0.7) H Basophils # (Auto) 0.0 x10^3/uL (0.0-0.2) Laboratory Tests 05/16/20 21:00 05/17/20 08:10 Laboratory Tests 05/16/20 21:00 05/17/20 04:30 ASSESSMENT/PLAN ASSESSMENT/PLAN 1. Chest pain, atypical. AMI ruled out. EKG without significant acute changes as compared to study on 01/15/17 2. Hypertension; controlled 3. Hyperlipidemia 4. Diabetes, II 5. Chronic pain, neuropathy 6. PUI; COVID pending Recommendations ASA Lipids Given risk factors, will check echo to asses LV systolic function if COVID PCR is negative Consider outpatient ischemic evaluation Supportive care NORA PANTOJA MD 05/17/20 1726: CARDIAC CONSULT ASSESSMENT/PLAN ASSESSMENT/PLAN Patient seen and examined. Agree with [employer]ISATION MANAGER's assessment and plan. Chest pain with atypical features. Myocardial infarction has been ruled out. Patient's Covid test is pending. We will check 2D echo to assess LVEF and rule out wall motion abnormalities if Covid test negative. Ischemic evaluation in the form of stress test could be considered as an outpatient. Thank you for your consultation BRITTANIE HOWARD APRN May 17, 2020 10:52 NORA PANTOJA MD May 17, 2020 17:26
[2020-05-17 11:00] VITALS: BP 147/63
[2020-05-17 11:28] LABS: CHOLESTEROL/HDL RATIO 3.1
[2020-05-17] MEDS ORDERED: metFORMIN 500 MG TABLET PO SCH (12:00)
[2020-05-17] MEDS ORDERED: DEXTROSE 50% 25 GM / 50ML DISP.SYRIN. IV PRN (12:00)
[2020-05-17] MEDS: INSULIN LISPRO 300 UNITS/3 ML VIAL. SQ SCH ×2 (12:00→17:00)
[2020-05-17] MEDS ORDERED: LIDOCAINE 2% TOPICAL JELLY 30GM TUBE. TP ONE (12:00)
[2020-05-17] MEDS: LOSARTAN POTASSIUM 50 MG TABLET. PO SCH (13:03)
[2020-05-17] MEDS: MELOXICAM 7.5 MG TABLET PO SCH (13:03)
[2020-05-17] MEDS: hydroCHLOROthiazide 12.5 MG CAPSULE PO SCH (13:03)
[2020-05-17] MEDS: METOPROLOL SUCC 24HR ER 25 MG TAB.ER.24H. PO SCH (13:04)
[2020-05-17] MEDS: PANTOPRAZOLE 40 MG TABLET.DR. PO SCH (13:04)
[2020-05-17] MEDS: GABAPENTIN 400 MG CAPSULE. PO SCH ×2 (13:04→20:59)
[2020-05-17] MEDS: DICLOFENAC SODIUM 1% TOPICAL GEL 100GM TUBE. TP SCH ×2 (13:05→21:03)
[2020-05-17] MEDS: HYDROcodone/APAP 5/325MG 1 TAB TABLET PO PRN ×2 (13:05→18:54)
[2020-05-17] MEDS: LINAGLIPTIN 5 MG TABLET PO SCH (13:14)
[2020-05-17 15:00] VITALS: BP 145/64
--- NOTE | 2020-05-17 16:13 | NUR ---
SS following for discharge planning. SS reviewed pt chart and discussed with pt RN. Pt is from [facility], ; fax [phone], and is currently requiring oxygen. COVID19 test pending. PT/OT ordered. PT recommended home with home healthcare. Ish requesting COVID19 test prior to returning to facility. Pt's RN notified. SS will continue to follow for discharge planning.
--- NOTE | 2020-05-17 17:19 | PDOC1 ---
History and Physical Date of Service: DOS: DATE: 05/17/20 TIME: 17:15 Chief Complaint: Chief Complain: chest pain History of Present Illness: HPI: 65 year old female with a history of diabetes type 2, hypertension, who presents the ED today complaining of mild to moderate intermittent bilateral lower chest pain wrapping around her back, symptoms have been going on for 3 weeks and got worse today. Patient states the pain is sharp and constant. She states the pain is worse when she is propelling herself in a wheelchair. Patient denies anything relieving her pain. Patient reports following up with her PCP for this pain and was started on hydrocodone, tizanidine, gabapentin and meloxicam. She states none of this medications are helping. She states also the PCP did a big work-up on her which she felt was not helpful because it was negative. Denies any fever, cough, chest pain, pneumaturia, urgency frequency or dysuria. Past Medical/Surgical History: PMH/PSH: Past Medical History: Diabetes-Type II, Hypertension Past Surgical History: Hysterectomy, Tonsillectomy, KNEE X 2 Allergies: Allergies: Coded Allergies: No Known Drug Allergies (Unverified , 01/15/17) Family History: Family History: Reviewed with history of diabetes in the family Social History: Social History: Smoking Status: Never Smoker Alcohol Use: None Drug Use: None Current Medications: Current Medications Current Medications Aspirin (Min Aspirin) 325 mg 1X ONCE PO Last administered on 05/16/20at 21:16; Start 05/16/20 at 21:15; Stop 05/16/20 at 21:16; Status DC Sodium Chloride 1,000 ml @ 1,000 mls/hr 1X ONCE IV Last administered on 05/16/20at 21:17; Start 05/16/20 at 21:15; Stop 05/16/20 at 22:14; Status DC Magnesium Sulfate/ Dextrose 100 ml @ 100 mls/hr 1X ONCE IV Last administered on 05/16/20at 21:54; Start 05/16/20 at 21:45; Stop 05/16/20 at 22:44; Status DC Iohexol (Omnipaque 350 Mg/ml) 80 ml 1X ONCE IV Last administered on 05/16/20at 22:36; Start 05/16/20 at 21:45; Stop 05/16/20 at 21:46; Status DC Info (CONTRAST GIVEN -- Rx MONITORING) 1 each PRN DAILY PRN MC SEE COMMENTS; Start 05/16/20 at 21:45; Stop 05/18/20 at 21:44 Ondansetron HCl (Zofran) 4 mg PRN Q8HRS PRN IV NAUSEA/VOMITING; Start 05/16/20 at 23:30; Stop 05/17/20 at 23:29 Fentanyl Citrate (Fentanyl 2ml Vial) 50 mcg PRN Q1HR PRN IV PAIN Last administered on 05/17/20at 11:52; Start 05/16/20 at 23:30; Stop 05/17/20 at 23:29 Nitroglycerin (Nitrostat) 0.4 mg PRN Q5MIN PRN SL CHEST PAIN; Start 05/16/20 at 23:30; Stop 05/17/20 at 23:29 Iohexol (Omnipaque 350 Mg/ml) 100 ml STK-MED ONCE .ROUTE ; Start 05/17/20 at 05:05; Stop 05/17/20 at 05:05; Status DC Amlodipine Besylate (Norvasc) 10 mg DAILY PO Last administered on 05/17/20at 13:04; Start 05/17/20 at 12:00 Atorvastatin Calcium (Lipitor) 40 mg QHS PO ; Start 05/17/20 at 21:00 Gabapentin (Neurontin) 400 mg TID PO Last administered on 05/17/20at 13:04; Start 05/17/20 at 12:00 Acetaminophen/ Hydrocodone Bitart (Lortab 5/325) 1 tab PRN Q6HRS PRN PO PAIN Last administered on 05/17/20at 13:05; Start 05/17/20 at 11:30 Metoprolol Succinate (Toprol Xl) 25 mg DAILY PO Last administered on 05/17/20at 13:04; Start 05/17/20 at 12:00 Tizanidine HCl (Zanaflex) 4 mg Q8HRS PRN PO MUSCLE SPASMS; Start 05/17/20 at 11:30 Hydrochlorothiazide (Microzide) 12.5 mg DAILY PO Last administered on 05/17/20at 13:03; Start 05/17/20 at 12:00 Losartan Potassium (Cozaar) 100 mg DAILY PO Last administered on 05/17/20at 13:03; Start 05/17/20 at 12:00 Meloxicam (Mobic) 15 mg DAILY PO Last administered on 05/17/20at 13:03; Start 05/17/20 at 12:00 Metformin HCl (Glucophage) 1,000 mg BIDWMEALS PO ; Start 05/17/20 at 12:00; Stop 05/17/20 at 11:55; Status DC Pantoprazole Sodium (Protonix) 40 mg DAILYAC PO Last administered on 05/17/20at 13:04; Start 05/17/20 at 12:00 Linagliptin (Tradjenta) 5 mg DAILY PO Last administered on 05/17/20at 13:14; Start 05/17/20 at 12:00 Lidocaine HCl (Xylocaine 2% Topical 30gm Tube) 1 nia 1X ONCE TP ; Start 05/17/20 at 12:00; Stop 05/17/20 at 12:09; Status DC Insulin Human Lispro (HumaLOG) 0-5 UNITS TIDWMEALS SQ ; Start 05/17/20 at 12:00 Dextrose (Dextrose 50%-Water Syringe) 12.5 gm PRN Q15MIN PRN IV SEE COMMENTS; Start 05/17/20 at 12:00 Diclofenac Sodium (Voltaren) 1 nia BID TP Last administered on 05/17/20at 13:05; Start 05/17/20 at 13:00 Active Scripts Active Reported Atorvastatin Calcium 40 Mg Tablet 1 Tab PO QHS Amlodipine Besylate 10 Mg Tablet 10 Mg PO DAILY Tizanidine Hcl 4 Mg Tablet 4 Mg PO Q8HRS PRN Protonix (Pantoprazole Sodium) 20 Mg Tablet.dr 40 Mg PO DAILY Metoprolol Succinate ( Xl ) (Metoprolol Succinate) 25 Mg Tab.er.24h 1 Tab PO DAILY Metformin Hcl 1,000 Mg Tablet 1,000 Mg PO BIDWMEALS Meloxicam 15 Mg Tablet 1 Tab PO DAILY 30 Days Losartan Potassium 100 Mg Tablet 100 Mg PO DAILY Januvia (Sitagliptin Phosphate) 100 Mg Tablet 1 Tab PO DAILY Hydrocodone-Apap 5-325 (Hydrocodone Bit/Acetaminophen) 1 Tab Tablet 1 Tab PO PRN Q6HRS PRN Gabapentin (Gabapentin) 400 Mg Capsule 400 Mg PO TID Hydrochlorothiazide Tablet (Hydrochlorothiazide) 12.5 Mg Tablet 12.5 Mg PO DAILY ROS: Review of Systems Review of System REVIEW OF SYSTEMS: GENERAL: Denies weakness SKIN: No bruising, hair changes or rashes. EYES: No blurred, double or loss of vision. NOSE AND THROAT: No history of nosebleeds, hoarseness or sore throat. HEART: No history of palpitations, chest pain or shortness of breath on exertion. LUNGS: Denies cough, hemoptysis, wheezing or shortness of breath. GASTROINTESTINAL: Denies changes in appetite, nausea, vomiting, diarrhea or constipation. GENITOURINARY: No history of frequency, urgency, hesitancy or nocturia. NEUROLOGIC: Denies history of numbness, tingling, or tremor. PSYCHIATRIC: No history of panic, anxiety or depression. ENDOCRINE: No history of heat or cold intolerance, polyuria or polydipsia. EXTREMITIES: Denies joint pain, pain on walking or stiffness. Physical Exam: Vital Signs: Vital Signs Date Time Temp Pulse Resp B/P (MAP) Pulse Ox O2 Delivery O2 Flow Rate FiO2 05/17/20 15:00 98.5 66 20 145/64 (91) 97 Nasal Cannula 2.0 98.5 Physcial Exam: GEN: No apparent distress. Alert and oriented HEENT: Normal cephalic, atraumatic, external auditory canals are patent EYES: Extraocular muscles are intact, pupil are equally round and reactive to light and accommodation MUSCULOSKELETAL: Well developed , well nourished, good range of motion ENDOCRINE: No thyromegaly was palpated LYMPHATICS: No cervical chain or axillary nodes were noted HEMATOPOIETIC: No bruising NECK: Supple, no JVD, no thyromegaly was noted LUNGS: Clear to auscultation in all lung oneill without rhonchi or wheezing HEART: RRR, S!, S2 present. Peripheral pulses intact, no obvious murmurs noted ABDOMEN: Soft, nontender. Positive bowel sounds, no organomegaly, normal bowel sounds EXTREMITIES: Without clubbing, cyanosis, or edema. Pedal pulses intact. Negative Homans sign NEUROLOGIC: Normal speech and tone. A&O x 3, moves all extremities, no obvious focal deficits PSYCHIATRIC: Normal affect, normal mood. Stable SKIN: No ulcerations or rashes, good skin turgor, no jaundice VASCULAR: Good capillary refill, neurovascular bundle appears to be intact Labs: Labs: Laboratory Tests Test 05/16/20 21:00 05/17/20 00:10 05/17/20 01:15 05/17/20 04:30 White Blood Count 10.4 x10^3/uL (4.0-11.0) Red Blood Count 3.85 x10^6/uL (3.50-5.40) Hemoglobin 11.7 g/dL (12.0-15.5) Hematocrit 34.2 % (36.0-47.0) Mean Corpuscular Volume 89 fL (79-100) Mean Corpuscular Hemoglobin 30 pg (25-35) Mean Corpuscular Hemoglobin Concent 34 g/dL (31-37) Red Cell Distribution Width 13.7 % (11.5-14.5) Platelet Count 274 x10^3/uL (140-400) Neutrophils (%) (Auto) 66 % (31-73) Lymphocytes (%) (Auto) 18 % (24-48) Monocytes (%) (Auto) 5 % (0-9) Eosinophils (%) (Auto) 11 % (0-3) Basophils (%) (Auto) 1 % (0-3) Neutrophils # (Auto) 6.8 x10^3/uL (1.8-7.7) Lymphocytes # (Auto) 1.8 x10^3/uL (1.0-4.8) Monocytes # (Auto) 0.5 x10^3/uL (0.0-1.1) Eosinophils # (Auto) 1.1 x10^3/uL (0.0-0.7) Basophils # (Auto) 0.1 x10^3/uL (0.0-0.2) Segmented Neutrophils % 66 % (35-66) Band Neutrophils % 4 % (0-9) Lymphocytes % 16 % (24-48) Monocytes % 1 % (0-10) Eosinophils % 13 % (0-5) Platelet Estimate Adequate (ADEQUATE) Prothrombin Time 12.3 SEC (11.7-14.0) Prothromb Time International Ratio 1.0 (0.8-1.1) Sodium Level 141 mmol/L (136-145) 142 mmol/L (136-145) Potassium Level 4.7 mmol/L (3.5-5.1) 3.9 mmol/L (3.5-5.1) Chloride Level 103 mmol/L (98-107) 105 mmol/L (98-107) Carbon Dioxide Level 29 mmol/L (21-32) 26 mmol/L (21-32) Anion Gap 9 (6-14) 11 (6-14) Blood Urea Nitrogen 28 mg/dL (7-20) 22 mg/dL (7-20) Creatinine 1.2 mg/dL (0.6-1.0) 0.9 mg/dL (0.6-1.0) Estimated GFR (Cockcroft-Gault) 44.9 62.6 BUN/Creatinine Ratio 23 (6-20) 24 (6-20) Glucose Level 121 mg/dL (70-99) 98 mg/dL (70-99) Calcium Level 9.2 mg/dL (8.5-10.1) 9.3 mg/dL (8.5-10.1) Magnesium Level 1.3 mg/dL (1.8-2.4) Total Bilirubin 0.3 mg/dL (0.2-1.0) 0.3 mg/dL (0.2-1.0) Aspartate Amino Transf (AST/SGOT) 18 U/L (15-37) 18 U/L (15-37) Alanine Aminotransferase (ALT/SGPT) 23 U/L (14-59) 19 U/L (14-59) Alkaline Phosphatase 89 U/L (46-116) 75 U/L (46-116) Troponin I Quantitative < 0.017 ng/mL (0.000-0.055) < 0.017 ng/mL (0.000-0.055) < 0.017 ng/mL (0.000-0.055) OF-Gfe-M-Type Natriuretic Peptide 787 pg/mL (0-124) Total Protein 6.7 g/dL (6.4-8.2) 6.9 g/dL (6.4-8.2) Albumin 3.3 g/dL (3.4-5.0) 3.0 g/dL (3.4-5.0) Albumin/Globulin Ratio 1.0 (1.0-1.7) 0.8 (1.0-1.7) Thyroid Stimulating Hormone (TSH) 5.025 uIU/mL (0.358-3.74) Urine Collection Type Unknown Urine Color Yellow Urine Clarity Clear Urine pH 7.0 (<5.0-8.0) Urine Specific [place] 1.025 (1.000-1.030) Urine Protein Negative mg/dL (NEG-TRACE) Urine Glucose (UA) Negative mg/dL (NEG) Urine Ketones (Stick) Negative mg/dL (NEG) Urine Blood Negative (NEG) Urine Nitrite Negative (NEG) Urine Bilirubin Negative (NEG) Urine Urobilinogen Dipstick 0.2 mg/dL (0.2 mg/dL) Urine Leukocyte Esterase Large (NEG) Urine RBC 0 /HPF (0-2) Urine WBC 11-20 /HPF (0-4) Urine Squamous Epithelial Cells Few /LPF Urine Bacteria 0 /HPF (0-FEW) Urine Mucus Slight /LPF Urine Opiates Screen Pos (NEG) Urine Methadone Screen Neg (NEG) Urine Barbiturates Neg (NEG) Urine Phencyclidine Screen Neg (NEG) Urine Amphetamine/Methamphetamine Neg (NEG) Urine Benzodiazepines Screen Neg (NEG) Urine Cocaine Screen Neg (NEG) Urine Cannabinoids Screen Neg (NEG) Urine Ethyl Alcohol Neg (NEG) Triglycerides Level 90 mg/dL (0-150) Cholesterol Level 168 mg/dL (0-200) LDL Cholesterol, Calculated 96 mg/dL (0-100) VLDL Cholesterol, Calculated 18 mg/dL (0-40) Non-HDL Cholesterol Calculated 114 mg/dL (0-129) HDL Cholesterol 54 mg/dL (40-60) Cholesterol/HDL Ratio 3.1 Test 05/17/20 04:45 05/17/20 07:39 05/17/20 08:10 05/17/20 11:58 Coronavirus (PCR) Not detected (Not Detected) Glucose (Fingerstick) 99 mg/dL (70-99) 169 mg/dL (70-99) White Blood Count 9.7 x10^3/uL (4.0-11.0) Red Blood Count 4.17 x10^6/uL (3.50-5.40) Hemoglobin 12.6 g/dL (12.0-15.5) Hematocrit 37.5 % (36.0-47.0) Mean Corpuscular Volume 90 fL (79-100) Mean Corpuscular Hemoglobin 30 pg (25-35) Mean Corpuscular Hemoglobin Concent 34 g/dL (31-37) Red Cell Distribution Width 13.9 % (11.5-14.5) Platelet Count 288 x10^3/uL (140-400) Neutrophils (%) (Auto) 61 % (31-73) Lymphocytes (%) (Auto) 21 % (24-48) Monocytes (%) (Auto) 6 % (0-9) Eosinophils (%) (Auto) 12 % (0-3) Basophils (%) (Auto) 0 % (0-3) Neutrophils # (Auto) 5.9 x10^3/uL (1.8-7.7) Lymphocytes # (Auto) 2.0 x10^3/uL (1.0-4.8) Monocytes # (Auto) 0.6 x10^3/uL (0.0-1.1) Eosinophils # (Auto) 1.2 x10^3/uL (0.0-0.7) Basophils # (Auto) 0.0 x10^3/uL (0.0-0.2) Laboratory Tests Test 05/16/20 21:00 05/17/20 00:10 05/17/20 01:15 05/17/20 04:30 White Blood Count 10.4 x10^3/uL (4.0-11.0) Red Blood Count 3.85 x10^6/uL (3.50-5.40) Hemoglobin 11.7 g/dL (12.0-15.5) Hematocrit 34.2 % (36.0-47.0) Mean Corpuscular Volume 89 fL (79-100) Mean Corpuscular Hemoglobin 30 pg (25-35) Mean Corpuscular Hemoglobin Concent 34 g/dL (31-37) Red Cell Distribution Width 13.7 % (11.5-14.5) Platelet Count 274 x10^3/uL (140-400) Neutrophils (%) (Auto) 66 % (31-73) Lymphocytes (%) (Auto) 18 % (24-48) Monocytes (%) (Auto) 5 % (0-9) Eosinophils (%) (Auto) 11 % (0-3) Basophils (%) (Auto) 1 % (0-3) Neutrophils # (Auto) 6.8 x10^3/uL (1.8-7.7) Lymphocytes # (Auto) 1.8 x10^3/uL (1.0-4.8) Monocytes # (Auto) 0.5 x10^3/uL (0.0-1.1) Eosinophils # (Auto) 1.1 x10^3/uL (0.0-0.7) Basophils # (Auto) 0.1 x10^3/uL (0.0-0.2) Segmented Neutrophils % 66 % (35-66) Band Neutrophils % 4 % (0-9) Lymphocytes % 16 % (24-48) Monocytes % 1 % (0-10) Eosinophils % 13 % (0-5) Platelet Estimate Adequate (ADEQUATE) Prothrombin Time 12.3 SEC (11.7-14.0) Prothromb Time International Ratio 1.0 (0.8-1.1) Sodium Level 141 mmol/L (136-145) 142 mmol/L (136-145) Potassium Level 4.7 mmol/L (3.5-5.1) 3.9 mmol/L (3.5-5.1) Chloride Level 103 mmol/L (98-107) 105 mmol/L (98-107) Carbon Dioxide Level 29 mmol/L (21-32) 26 mmol/L (21-32) Anion Gap 9 (6-14) 11 (6-14) Blood Urea Nitrogen 28 mg/dL (7-20) 22 mg/dL (7-20) Creatinine 1.2 mg/dL (0.6-1.0) 0.9 mg/dL (0.6-1.0) Estimated GFR (Cockcroft-Gault) 44.9 62.6 BUN/Creatinine Ratio 23 (6-20) 24 (6-20) Glucose Level 121 mg/dL (70-99) 98 mg/dL (70-99) Calcium Level 9.2 mg/dL (8.5-10.1) 9.3 mg/dL (8.5-10.1) Magnesium Level 1.3 mg/dL (1.8-2.4) Total Bilirubin 0.3 mg/dL (0.2-1.0) 0.3 mg/dL (0.2-1.0) Aspartate Amino Transf (AST/SGOT) 18 U/L (15-37) 18 U/L (15-37) Alanine Aminotransferase (ALT/SGPT) 23 U/L (14-59) 19 U/L (14-59) Alkaline Phosphatase 89 U/L (46-116) 75 U/L (46-116) Troponin I Quantitative < 0.017 ng/mL (0.000-0.055) < 0.017 ng/mL (0.000-0.055) < 0.017 ng/mL (0.000-0.055) NU-Mho-O-Type Natriuretic Peptide 787 pg/mL (0-124) Total Protein 6.7 g/dL (6.4-8.2) 6.9 g/dL (6.4-8.2) Albumin 3.3 g/dL (3.4-5.0) 3.0 g/dL (3.4-5.0) Albumin/Globulin Ratio 1.0 (1.0-1.7) 0.8 (1.0-1.7) Thyroid Stimulating Hormone (TSH) 5.025 uIU/mL (0.358-3.74) Urine Collection Type Unknown Urine Color Yellow Urine Clarity Clear Urine pH 7.0 (<5.0-8.0) Urine Specific [place] 1.025 (1.000-1.030) Urine Protein Negative mg/dL (NEG-TRACE) Urine Glucose (UA) Negative mg/dL (NEG) Urine Ketones (Stick) Negative mg/dL (NEG) Urine Blood Negative (NEG) Urine Nitrite Negative (NEG) Urine Bilirubin Negative (NEG) Urine Urobilinogen Dipstick 0.2 mg/dL (0.2 mg/dL) Urine Leukocyte Esterase Large (NEG) Urine RBC 0 /HPF (0-2) Urine WBC 11-20 /HPF (0-4) Urine Squamous Epithelial Cells Few /LPF Urine Bacteria 0 /HPF (0-FEW) Urine Mucus Slight /LPF Urine Opiates Screen Pos (NEG) Urine Methadone Screen Neg (NEG) Urine Barbiturates Neg (NEG) Urine Phencyclidine Screen Neg (NEG) Urine Amphetamine/Methamphetamine Neg (NEG) Urine Benzodiazepines Screen Neg (NEG) Urine Cocaine Screen Neg (NEG) Urine Cannabinoids Screen Neg (NEG) Urine Ethyl Alcohol Neg (NEG) Triglycerides Level 90 mg/dL (0-150) Cholesterol Level 168 mg/dL (0-200) LDL Cholesterol, Calculated 96 mg/dL (0-100) VLDL Cholesterol, Calculated 18 mg/dL (0-40) Non-HDL Cholesterol Calculated 114 mg/dL (0-129) HDL Cholesterol 54 mg/dL (40-60) Cholesterol/HDL Ratio 3.1 Test 05/17/20 04:45 05/17/20 07:39 05/17/20 08:10 05/17/20 11:58 Coronavirus (PCR) Not detected (Not Detected) Glucose (Fingerstick) 99 mg/dL (70-99) 169 mg/dL (70-99) White Blood Count 9.7 x10^3/uL (4.0-11.0) Red Blood Count 4.17 x10^6/uL (3.50-5.40) Hemoglobin 12.6 g/dL (12.0-15.5) Hematocrit 37.5 % (36.0-47.0) Mean Corpuscular Volume 90 fL (79-100) Mean Corpuscular Hemoglobin 30 pg (25-35) Mean Corpuscular Hemoglobin Concent 34 g/dL (31-37) Red Cell Distribution Width 13.9 % (11.5-14.5) Platelet Count 288 x10^3/uL (140-400) Neutrophils (%) (Auto) 61 % (31-73) Lymphocytes (%) (Auto) 21 % (24-48) Monocytes (%) (Auto) 6 % (0-9) Eosinophils (%) (Auto) 12 % (0-3) Basophils (%) (Auto) 0 % (0-3) Neutrophils # (Auto) 5.9 x10^3/uL (1.8-7.7) Lymphocytes # (Auto) 2.0 x10^3/uL (1.0-4.8) Monocytes # (Auto) 0.6 x10^3/uL (0.0-1.1) Eosinophils # (Auto) 1.2 x10^3/uL (0.0-0.7) Basophils # (Auto) 0.0 x10^3/uL (0.0-0.2) Images: Images CT abdomen pelvis and chest IMPRESSION: 1. No evidence of aortic dissection. 2.Mild hyperdensity identified in the upper esophagus best seen on series 3 image 20 could be hyperdense ingested material however blood in the esophagus is not completely excluded 3. Linear airspace opacities identified in the right middle lobe of the bibasilar lungs likely atelectasis or infiltrates 4. A cystic structure identified in the right lobe of the liver could be a cyst or hemangioma measuring 1.4 cm. Assessment/Plan Assessment/Plan Chest pain concerning for unstable angina/NSTEMI Subclinical hypothyroidism, possible Hypomagnesemia [place] due to vasomotor nephropathy Troponins negative x3 Continue aspirin, consider Plavix if intermediate risk will defer this to cardiology Cardiology consulted for predischarge stress testing or left heart cath Continue nitroglycerin as needed for pain Continue beta-monica if blood pressures allow Continue high intensity statins IV morphine as needed Consider Lovenox Maintain O2 sats between 88 to 95% Trend troponins Repeat EKG in the a.m. Continue telemetry monitoring Monitor for electrolyte abnormalities Avoid NSAIDs Justifications for Admission Other Justification SHANI LEAVITT MD May 17, 2020 17:19
--- NOTE | 2020-05-17 17:37 | CARD ---
MR#: [id number] Date of Study: 05/17/2020 Ordering Physician: BRITTANIE HOWARD, Referring Physician: BRITTANIE HOWARD, Tech: Mckenzie Vasquez APPROVED REPORT EXAM: Two-dimensional and M-mode echocardiogram with Doppler and color Doppler. Other Information HR: 68bpm Technically limited study due to shallow breathing INDICATION Chest Pain RISK FACTORS Hypertension 2D DIMENSIONS RVDd2.5 (2.9-3.5cm)Left Atrium(2D)2.9 (1.6-4.0cm) IVSd1.1 (0.7-1.1cm)Aortic Root(2D)2.9 (2.0-3.7cm) LVDd4.5 (3.9-5.9cm)LVOT Diameter2.0 (1.8-2.4cm) PWd1.0 (0.7-1.1cm)LVDs2.3 (2.5-4.0cm) FS (%) 49.7 %SV75.8 ml LVEF(%)81.2 (>50%) Aortic Valve AoV Peak Aman.127.5cm/sAoV VTI29.1cm AO Peak GR.6.5mmHgLVOT VTI 21.51cm AO Mean GR.4mmHg Mitral Valve MV E Vilgadvs94.3cm/sMV DECEL [id number] MV A Ruxisxfj19.7cm/sE/A Ratio0.9 TDI Lateral E' P. V8.75cm/sMedial E' P. V7.72cm/s E/Lateral E'8.3E/Medial E'9.4 Tricuspid Valve TR P. Oigdtzpt160qz/sRAP QODFISRD2dxQi TR Peak Gr.24jgNmKRLM79enAe Pulmonary Vein S1 Wvcyimhn51.0cm/sS2 Oecjrrij72.43cm/s D2 Rinahuew93.4cm/s LEFT VENTRICLE The left ventricle is normal size. There is borderline to mild concentric left ventricular hypertroph y. The left ventricular systolic function is normal and the ejection fraction is within normal range. The Ejection Fraction is 60-65%. There is normal LV segmental wall motion. Transmitral Doppler flow pattern is Grade I-abnormal relaxation pattern. RIGHT VENTRICLE The right ventricle is normal size. There is normal right ventricular wall thickness. The right ventr icular systolic function is normal. ATRIA The left atrium size is normal. The right atrium size is normal. The interatrial septum is intact wit h no evidence for an atrial septal defect or patent foramen ovale as noted on 2-D or Doppler imaging. AORTIC VALVE The aortic valve is thickened but opens well. Doppler and Color Flow revealed trace aortic regurgitat ion. There is no significant aortic valvular stenosis. Calculated aortic valve area is 2.30 cm2 with maximum pressure gradient of 7 mmHg and mean pressure gradient of 4 mmHg. MITRAL VALVE The mitral valve is normal in structure and function. There is no evidence of mitral valve prolapse. There is no mitral valve stenosis. Doppler and Color-flow revealed trace mitral regurgitation. TRICUSPID VALVE The tricuspid valve is normal in structure and function. No significant regurgitation. There is no tr icuspid valve stenosis. PULMONIC VALVE The pulmonic valve is not well visualized. Doppler and Color Flow revealed trace pulmonic valvular re gurgitation. There is no pulmonic valvular stenosis. GREAT VESSELS The aortic root is normal in size. The IVC is normal in size and collapses >50% with inspiration. PERICARDIAL EFFUSION There is no evidence of significant pericardial effusion. Critical Notification Critical Value: No <Conclusion> The left ventricular systolic function is normal and the ejection fraction is within normal range. Th e Ejection Fraction is 60-65%. There is normal LV segmental wall motion. Technically limited study due to patient motion. Signed by : Akshat Mcqueen, Electronically Approved : 05/17/2020 17:37:25
[2020-05-17] MEDS: tiZANidine 4 MG TABLET. PO PRN (18:53)
[2020-05-17 19:41] VITALS: BP 116/61
[2020-05-17] MEDS ORDERED: ATORVASTATIN CALCIUM 40 MG TABLET. PO SCH (21:00)
[2020-05-17 23:17] VITALS: BP 94/53
[2020-05-18 03:27] VITALS: BP 106/56
[2020-05-18] MEDS: tiZANidine 4 MG TABLET. PO PRN ×2 (03:37→12:37)
[2020-05-18] MEDS: HYDROcodone/APAP 5/325MG 1 TAB TABLET PO PRN (03:37)
[2020-05-18 07:00] VITALS: BP 87/49
[2020-05-18] MEDS: INSULIN LISPRO 300 UNITS/3 ML VIAL. SQ SCH ×2 (08:00→12:00)
[2020-05-18 08:03] LABS: BASO % 0 % (0-3); EOS # 1.1 x10^3/uL (0.0-0.7); EOS % 13 % (0-3); HEMATOCRIT 32.1 % (36.0-47.0); HEMOGLOBIN 10.9 g/dL (12.0-15.5); LYMPH # 2.5 x10^3/uL (1.0-4.8); LYMPH % 30 % (24-48); MEAN CORPUSCULAR HEMOGLOBIN 30 pg (25-35); MEAN CORPUSCULAR HGB CONC 34 g/dL (31-37); MEAN CORPUSCULAR VOLUME 89 fL (79-100); MONO # 0.7 x10^3/uL (0.0-1.1); MONO % 8 % (0-9); NEUT # 4.1 x10^3/uL (1.8-7.7); NEUT % 49 % (31-73); PLATELET COUNT 248 x10^3/uL (140-400); RED CELL DISTRIBUTION WIDTH 13.8 % (11.5-14.5); WHITE BLOOD COUNT 8.3 x10^3/uL (4.0-11.0)
[2020-05-18 08:23] LABS: CREATININE 1.2 mg/dL (0.6-1.0); GFR 44.9; MAGNESIUM 1.6 mg/dL (1.8-2.4); PHOSPHORUS 4.3 mg/dL (2.6-4.7); POTASSIUM 4.5 mmol/L (3.5-5.1)
[2020-05-18] MEDS: GABAPENTIN 400 MG CAPSULE. PO SCH (08:25)
[2020-05-18] MEDS: PANTOPRAZOLE 40 MG TABLET.DR. PO SCH (08:25)
[2020-05-18] MEDS: hydroCHLOROthiazide 12.5 MG CAPSULE PO SCH (08:25)
[2020-05-18] MEDS: LINAGLIPTIN 5 MG TABLET PO SCH (08:27)
[2020-05-18] MEDS: MELOXICAM 7.5 MG TABLET PO SCH (08:28)
[2020-05-18] MEDS: METOPROLOL SUCC 24HR ER 25 MG TAB.ER.24H. PO SCH (08:29)
--- NOTE | 2020-05-18 10:12 | DISCH ---
DISCHARGE INSTRUCTIONS Condition on Discharge Condition on Discharge: Stable Activity After Discharge Activity Instructions for Disc: Activity as tolerated Checks after Discharge DC Comment: CBC, CMP within 1 week of discharge Follow-Up Follow up with: PCP within 2 weeks of discharge Follow Up With: Cardiology as needed regarding your outpatient ischemic work-up SHANI LEAVITT MD May 18, 2020 10:12
[2020-05-18 11:00] VITALS: BP 126/60
--- NOTE | 2020-05-18 11:47 | NUR ---
SS following up with discharge planning. SS reviewed pt chart and discussed with pt RN. Pt is currently on room air. Discharge order on the chart for return to [facility]. SS phoned and faxed clinical and discharge orders to [facility], ; fax [phone]. Pt will discharge today and return to [facility] at 1230. [facility] to provide transportation. Pt, pt's RN, and pt's brother notified.
--- NOTE | 2020-05-18 12:09 | PDOC ---
CARDIO Progress Notes Date and Time Date of Service 05/18/19 Time of Evaluation 1200 Subjective Subjective: No shortness of breath, No Palpitations, Other (rib tenderness ) Vitals Vitals Vital Signs Date Time Temp Pulse Resp B/P (MAP) Pulse Ox O2 Delivery O2 Flow Rate FiO2 05/18/20 11:00 98.1 18 126/60 (82) Room Air 98.1 05/18/20 08:29 63 05/18/20 07:00 95 05/17/20 20:22 2.0 Weight Weight [ ] Input and Output Intake and Output Intake and Output 05/18/20 07:00 Intake Total 300 ml Output Total 1000 ml Balance -700 ml Intake Oral 300 ml Output Urine Total 1000 ml Laboratory Labs Laboratory Tests Test 05/17/20 20:52 05/18/20 07:03 05/18/20 07:40 05/18/20 11:19 Glucose (Fingerstick) 166 mg/dL (70-99) 110 mg/dL (70-99) 141 mg/dL (70-99) White Blood Count 8.3 x10^3/uL (4.0-11.0) Red Blood Count 3.60 x10^6/uL (3.50-5.40) Hemoglobin 10.9 g/dL (12.0-15.5) Hematocrit 32.1 % (36.0-47.0) Mean Corpuscular Volume 89 fL (79-100) Mean Corpuscular Hemoglobin 30 pg (25-35) Mean Corpuscular Hemoglobin Concent 34 g/dL (31-37) Red Cell Distribution Width 13.8 % (11.5-14.5) Platelet Count 248 x10^3/uL (140-400) Neutrophils (%) (Auto) 49 % (31-73) Lymphocytes (%) (Auto) 30 % (24-48) Monocytes (%) (Auto) 8 % (0-9) Eosinophils (%) (Auto) 13 % (0-3) Basophils (%) (Auto) 0 % (0-3) Neutrophils # (Auto) 4.1 x10^3/uL (1.8-7.7) Lymphocytes # (Auto) 2.5 x10^3/uL (1.0-4.8) Monocytes # (Auto) 0.7 x10^3/uL (0.0-1.1) Eosinophils # (Auto) 1.1 x10^3/uL (0.0-0.7) Basophils # (Auto) 0.0 x10^3/uL (0.0-0.2) Sodium Level 144 mmol/L (136-145) Potassium Level 4.5 mmol/L (3.5-5.1) Chloride Level 106 mmol/L (98-107) Carbon Dioxide Level 32 mmol/L (21-32) Anion Gap 6 (6-14) Blood Urea Nitrogen 22 mg/dL (7-20) Creatinine 1.2 mg/dL (0.6-1.0) Estimated GFR (Cockcroft-Gault) 44.9 Glucose Level 95 mg/dL (70-99) Calcium Level 9.0 mg/dL (8.5-10.1) Phosphorus Level 4.3 mg/dL (2.6-4.7) Magnesium Level 1.6 mg/dL (1.8-2.4) Microbiology Micro Microbiology 05/17/20 Urine Culture - Final, Complete Physical Exam HEENT: Neck Supple W Full Motion Chest: Symmetric LUNGS: Other (bilateral rib tenderness upon palpation ) Heart: RRR Abdomen: Soft N/T Extremities: No Edema Neurology: alert, oriented, follow commands Assessment Assessment 1. Chest pain, atypical. AMI ruled out. EKG without significant acute changes as compared to study on 01/15/17. Echo with preserved LV systolic function, no WMA 2. Hypertension; controlled 3. Hyperlipidemia; LDL 96 4. Diabetes, II 5. Chronic pain, neuropathy 6. PUI; COVID pending Recommendations ASA therapy Consider outpatient ischemic evaluation Okay to discharge from a CV standpoint Supportive care Justicifation of Admission Dx: Justifications for Admission: Justification of Admission Dx: Yes Comments: chest pain BRITTANIE HOWARD APRN May 18, 2020 12:08
[2020-05-18 12:37] VITALS: BP 126/60
[2020-05-18] MEDS: DICLOFENAC SODIUM 1% TOPICAL GEL 100GM TUBE. TP SCH (12:37)
[2020-05-18] MEDS: LOSARTAN POTASSIUM 50 MG TABLET. PO SCH (12:37)
--- NOTE | 2020-05-18 14:15 | NUR ---
Discharge Note: TAYLOR LUIS Discharge instructions and discharge home medications reviewed with Nurse at [facility] and a copy given transport. All questions have been answered and understanding verbalized. Discontinued iv line and catheter intact.
--- NOTE | 2020-05-20 15:17 | PDOC3 ---
[facility]-Discharge Summary Date of Admission: Date of Admission: May 17, 2020 Date of Discharge: Date of Discharge: May 18, 2020 Discharge Diagnosis: Discharge Diagnosis: 1. Chest pain, atypical. AMI ruled out. EKG without significant acute changes as compared to study on 01/15/17. Echo with preserved LV systolic function, no WMA 2. Hypertension; controlled 3. Hyperlipidemia; LDL 96 4. Diabetes, II 5. Chronic pain, neuropathy 6. PUI; COVID test negative Hospital Course: Hospital Course: 65 year old female with a history of diabetes type 2, hypertension, who presents the ED today complaining of mild to moderate intermittent bilateral lower chest pain wrapping around her back, symptoms have been going on for 3 weeks and got worse today. Patient states the pain is sharp and constant. She states the pain is worse when she is propelling herself in a wheelchair. Patient denies anything relieving her pain. Patient reports following up with her PCP for this pain and was started on hydrocodone, tizanidine, gabapentin and meloxicam. She states none of this medications are helping. She states also the PCP did a big work-up on her which she felt was not helpful because it was negative. Denies any fever, cough, chest pain, pneumaturia, urgency frequency or dysuria. Evaluated by cardiology and AMI was ruled out. Chest pain free on day of discharge. Rest of her hospital course was uneventful. Disposition: Disposition/Orders: D/C to Home Activity: Activity: Resume previous activity Diet: Diet: Cardiac Medications: Home Meds Reported Medications Atorvastatin Calcium (ATORVASTATIN CALCIUM) 40 Mg Tablet, 1 TAB PO QHS for HIGH CHOLESTROL, #90 TAB 3 Refills 05/17/20 Amlodipine Besylate (AMLODIPINE BESYLATE) 10 Mg Tablet, 10 MG PO DAILY for HTN, TAB 05/17/20 Tizanidine Hcl (TIZANIDINE HCL) 4 Mg Tablet, 4 MG PO Q8HRS PRN for MUSCLE SPASMS, TAB 05/17/20 Pantoprazole Sodium (PROTONIX) 20 Mg Tablet.dr, 40 MG PO DAILY for GERD, TAB 05/17/20 Metoprolol Succinate (METOPROLOL SUCCINATE ( XL )) 25 Mg Tab.er.24h, 1 TAB PO DAILY for HTN, #30 TAB 5 Refills 05/17/20 Metformin Hcl (METFORMIN HCL) 1,000 Mg Tablet, 1000 MG PO BIDWMEALS for DM, TAB 05/17/20 Meloxicam (MELOXICAM) 15 Mg Tablet, 1 TAB PO DAILY for INFLAMMATION for 30 Days, #30 TAB 0 Refills 05/17/20 Losartan Potassium (LOSARTAN POTASSIUM) 100 Mg Tablet, 100 MG PO DAILY for HYPERTENSION, TAB 05/17/20 Sitagliptin Phosphate (JANUVIA) 100 Mg Tablet, 1 TAB PO DAILY for DM, #30 TAB 5 Refills 05/17/20 Hydrocodone Bit/Acetaminophen (HYDROCODONE-APAP 5-325 ) 1 Tab Tablet, 1 TAB PO PRN Q6HRS PRN for PAIN, TAB 0 Refills 05/17/20 Gabapentin (GABAPENTIN ) 400 Mg Capsule, 400 MG PO TID for NEUROGENIC PAIN, CAP 05/17/20 Hydrochlorothiazide (HYDROCHLOROTHIAZIDE TABLET) 12.5 Mg Tablet, 12.5 MG PO DAILY for DIURETIC, TAB 0 Refills 08/19/19 Scheduled Amlodipine Besylate (Amlodipine Besylate), 10 MG PO DAILY, (Reported) Atorvastatin Calcium (Atorvastatin Calcium), 1 TAB PO QHS, (Reported) Gabapentin (Gabapentin ), 400 MG PO TID, (Reported) Hydrochlorothiazide (Hydrochlorothiazide Tablet), 12.5 MG PO DAILY, (Reported) Losartan Potassium (Losartan Potassium), 100 MG PO DAILY, (Reported) Meloxicam (Meloxicam), 1 TAB PO DAILY, (Reported) Metformin Hcl (Metformin Hcl), 1,000 MG PO BIDWMEALS, (Reported) Metoprolol Succinate (Metoprolol Succinate ( Xl )), 1 TAB PO DAILY, (Reported) Pantoprazole Sodium (Protonix), 40 MG PO DAILY, (Reported) Sitagliptin Phosphate (Januvia), 1 TAB PO DAILY, (Reported) Scheduled PRN Hydrocodone Bit/Acetaminophen (Hydrocodone-Apap 5-325 ), 1 TAB PO PRN Q6HRS PRN for PAIN, (Reported) Tizanidine Hcl (Tizanidine Hcl), 4 MG PO Q8HRS PRN for MUSCLE SPASMS, (Reported) Total Time: Total Time: Total time spent was 45 minutes in preparing scripts, discharge planning with SW and RN, and preparing this discharge summary. Patient seen and examined on day of discharge. Justicifation of Admission Dx: Justifications for Admission: Justification of Admission Dx: Yes SHANI LEAVITT MD May 20, 2020 15:17
[2020-09-30] MEDS ORDERED: FENT1PAT17 TP (02:35)
[2020-09-30] MEDS ORDERED: METF10007 PO (02:35)
[2020-09-30] MEDS ORDERED: GABA600T7 PO (02:35)
[2020-09-30] MEDS ORDERED: TIZA4TAB2 PO (02:35)
[2020-09-30] MEDS ORDERED: meloxicam PO (02:35)
[2020-09-30] MEDS ORDERED: METO-239 PO (02:35)
[2020-10-01] MEDS ORDERED: CIPR500T94 PO (09:47)
== END 2020-05-18 13:15 | disposition home or self-care (01) | DRG 205 ==
LOC: ER 20:40 → ED HOLD 05-17 01:01 → 2 SOUTH 05-17 05:40
PROVIDERS: ADMIT Family Medicine; ATTEND Family Medicine
DX: M94.0 Chondrocostal junction syndrome [Tietze] (principal); N17.0 Acute kidney failure with tubular necrosis; I10 Essential (primary) hypertension; E03.9 Hypothyroidism, unspecified; E11.9 Type 2 diabetes mellitus without complications; E78.5 Hyperlipidemia, unspecified; E83.42 Hypomagnesemia; G62.9 Polyneuropathy, unspecified; G89.29 Other chronic pain; Z20.822 Contact with and (suspected) exposure to COVID-19; Z83.3 Family history of diabetes mellitus; Z90.710 Acquired absence of both cervix and uterus; K21.9 Gastro-esophageal reflux disease without esophagitis; B02.9 Zoster without complications
CPT/HCPCS: 36415; 71275; 74174; 80048; 80053; 80061; 80307; 81001; 82962; 83735; 83880; 84100; 84439; 84443; 84484; 85007; 85025; 85610; 87086; 93005; 93306; 96365; 99285; J1815; J3010; J3475; J7030; Q9967; U0003; 97116-GP; 97530-GP; 97535-GO; G0378

== ENCOUNTER → 2021-06-24 | Outpatient (CLI) | payer MEDICAID, MEDICARE, OTHER ==
[2020-10-01 10:49] VITALS: BP 162/67
[~2021-06-24] MED LIST changes: +AMLO-187 PO; +ATOR40TA59 PO; +CIPR500T94 PO; +CONTRAST GIVEN. MC PRN; +FENT1PAT17 TP; +GABA-689 PO; +GABA600T7 PO; +HYDR-2761 PO; +IOHEXOL 240 MG/ML 50ML VIAL. ONE; +IOHEXOL 240 MG/ML 50ML VIAL. PO ONE; +IOHEXOL 300 MG/ML 100ML VIAL. IV ONE; +IOHEXOL 300 MG/ML 100ML VIAL. ONE; +LOSA100T14 PO; +MELO15TA23 PO; +METF10007 PO; +METO-239 PO; +PANT20TA2 PO; +SITA100T PO; +TIZA-75 PO; +meloxicam PO
--- NOTE | 2021-06-24 15:58 | RAD ---
PQRS Compliance Statement: One or more of the following individualized dose reduction techniques were utilized for this examinat ion: 1. Automated exposure control 2. Adjustment of the mA and/or kV according to patient size 3. Use of iterative reconstruction technique CT CHEST AND ABDOMEN WITH IV CONTRAST Clinical Indication: Reason: R/T CHEST/ ABDOMINAL LEFT SIDED PAIN Comparison: CTA chest abdomen and pelvis with contrast May 16, 2020. Technique: Helical CT imaging of the chest and abdomen is performed after 60 cc of Omnipaque 300 IV c ontrast. Oral contrast also administered. Findings: Bilateral axillary and mediastinal lymph nodes are stable. There is no adenopathy. Great vessels are normal caliber. Coronary artery disease. The cardiac size is normal, no pericardial effusion. No pleural abnormality. The central airways are patent. Linear opacities in the bilateral lower lobes and right middle lobe and lingula may be discoid atelectasis or scarring. The opacities are similar to prior study. Lungs are otherwise clear. Small hiatal hernia. Mild fatty infiltration of the liver. There is a stable small cyst or hemangioma in the posterior right hepatic lobe. The gallbladder, spleen, pancreas, adrenal glands, abdominal ao rta, and kidneys are normal. The stomach is unremarkable. There is no small bowel obstruction. Moderate colon stool volume. The vi sualized colon is without wall thickening. The inferior cecum in the region of the appendix is not im aged. There is no abdominal adenopathy. Thoracic spine alignment is maintained. There is degenerative spondylosis of C6/C7. No acute displace d rib fracture is identified. IMPRESSION: 1. No acute abnormality of the chest or abdomen. 2. Discoid atelectasis or scarring in the lungs is similar to prior study. 3. Small hiatal hernia. 4. Mild fatty infiltration of the liver. Electronically signed by: Pito Rodrigues MD (06/24/2021 3:55 PM) [facility]
== END ==
LOC: CT 12:18
PROVIDERS: ATTEND Family Medicine
DX: K76.0 Fatty (change of) liver, not elsewhere classified (principal); K44.9 Diaphragmatic hernia without obstruction or gangrene; R91.8 Other nonspecific abnormal finding of lung field; I25.10 Atherosclerotic heart disease of native coronary artery without angina pectoris; M47.812 Spondylosis without myelopathy or radiculopathy, cervical region
CPT/HCPCS: 71260; 74160; Q9966; Q9967

== ENCOUNTER → 2021-08-02 | Outpatient (CLI) | payer MEDICAID ==
[2020-10-01 10:49] VITALS: BP 162/67
[~2021-08-02] MED LIST changes: -CONTRAST GIVEN. MC PRN; -IOHEXOL 240 MG/ML 50ML VIAL. ONE; -IOHEXOL 240 MG/ML 50ML VIAL. PO ONE; -IOHEXOL 300 MG/ML 100ML VIAL. IV ONE; -IOHEXOL 300 MG/ML 100ML VIAL. ONE
--- NOTE | 2021-08-02 11:14 | RAD ---
EXAM: Thoracic spine MRI without contrast. HISTORY: Pain. TECHNIQUE: Multiplanar, multisequence magnetic resonance imaging of the thoracic spine was performed without contrast. COMPARISON: None. FINDINGS: The auction block clerk images of the cervical spine demonstrate mild cervical curvature and multilevel d egenerative listhesis. There is degenerative endplate remodeling with disc space narrowing and osteop hytosis primarily at the lower cervical levels. This contributes to foraminal and central canal steno sis, not formally assessed on this exam. There are similar degenerative changes involving the lumbar spine which are not formally assessed on this exam are completely included on the [id number]. There is no thoracic listhesis. There is no acute or subacute fracture. There are a few osseous heman giomas, the largest of which are seen within T3 and T8. There is also a T1 hyperintense lesion with i ncreased signal on inversion recovery images within the right posterior vertebral body and right T6 p edicle, likely due to an atypical hemangioma. No thoracic spinal cord lesion is seen. There is a tiny right hepatic cyst. At T1-T2, there is no stenosis. At T2-T3, there is a posterior central disc protrusion. There is no stenosis. At T3-T4 and T4-T5, there is no stenosis. At T5-T6, there is a right lateral recess disc protrusion. There is no stenosis. At T6-T7, there is a broad-based right paracentral to lateral recess disc protrusion. There is slight ly abuts the right ventral aspect of the spinal cord and contributes to mild central canal stenosis. At T7-T8, T8-T9 and T9-T10, there are minimal shallow posterior disc protrusions. There is no stenosi s. At T10-T11, there is no stenosis. At T11-T12, there is a right paracentral to lateral recess disc protrusion with superimposed inferior extrusion. Extruded disc material extends approximately 1.3 cm inferior to the disc space and slight ly effaces the right lateral recess. IMPRESSION: 1. Multilevel degenerative change involving the thoracic spine, described in detail above. This inclu darius disc protrusions at multiple levels, one of which contributes to mild central canal stenosis at T 6-T7. 2. Multiple benign incidental osseous hemangiomas and suspected atypical osseous hemangioma at T6, de scribed above. There is no suspicious osseous lesion. 3. Degenerative change involving the cervical and lumbar spine, not formally assessed on this exam. Electronically signed by: Becca Oliver MD (08/02/2021 11:11 AM) [facility]
== END ==
LOC: MRI 09:25
PROVIDERS: ATTEND Family Medicine
DX: M47.814 Spondylosis without myelopathy or radiculopathy, thoracic region (principal); M47.812 Spondylosis without myelopathy or radiculopathy, cervical region; M47.816 Spondylosis without myelopathy or radiculopathy, lumbar region; M51.24 Other intervertebral disc displacement, thoracic region; K76.89 Other specified diseases of liver; M43.8X2 Other specified deforming dorsopathies, cervical region; G95.89 Other specified diseases of spinal cord; M48.02 Spinal stenosis, cervical region; M43.12 Spondylolisthesis, cervical region
CPT/HCPCS: 72146

== ENCOUNTER → 2021-08-24 | Outpatient (CLI) | payer MEDICAID ==
[2020-10-01 10:49] VITALS: BP 162/67
[~2021-08-24] MED LIST changes: +DEXAMETHASONE PRES.FREE 10 MG/ML VIAL. ONE; +INSU100C4 SQ; +INSU100V13 SQ; +IOHEXOL 180 MG/ML 10 ML VIAL. ONE; +LIDO15CR9 TP; +LIDO700A21 TP
--- NOTE | 2021-08-24 16:36 | PDOC1 ---
INITIAL PAIN CONSULT DATE OF SERVICE: DOS: DATE: 08/24/21 TIME: 16:28 CHIEF COMPLAINT: Chief Complaint: Mid and upper back pain HISTORY OF PRESENT ILLNESS: 66-year-old female presents with history of pain in the mid upper back on the left side only present for about 3 months not the result of any specific injury or accident that she is aware but 1 day it just began and was excruciating patient reports is gotten somewhat better with taking tizanidine as well as anti-inflammatories and gabapentin but still significant pain in the left side of the mid and upper back radiating laterally into the mid upper flank and into the rib cage on the left side as well. Patient reports no significant radiation to the right side worse with repetitive motion bending stooping lifting bending sitting for prolonged period standing walking changing positions reports it wakes her from sleep about 3-4 times a night although tizanidine does help her sleep significantly patient reports she has difficulty with walking secondary to the pain is using a walker also has a electric wheelchair which she is using today. Patient did have a MRI scan of the thoracic spine showing T6-7 broad-based right paracentral to lateral recess disc protrusion slightly abutting the right ventral aspect of the spinal cord contributing to mild central canal stenosis at T7-T8, T8-T9, T9-T10 there are minimal shallow posterior disc protrusions without stenosis T11-12 shows a right paracentral lateral disc recess protrusion with superimposed inferior extrusion extruded material extending approximate 1.3 cm inferior to the disc base and slightly effacing the right lateral recess. Patient rates her disability rating 0-10 10 me the worst is an 8 with family home responsibilities recreation 9 with social activity occupation sexual behavior and self-care and several of life support activities. PAST MEDICAL HISTORY: PMH: Diabetes, hypertension, arthritis PREVIOUS SURGERIES: Past Surgical Hx: Hysterectomy, left total knee replacement, tonsillectomy, right knee scope CURRENT MEDICATIONS: Current Meds: Active Scripts Medications Dose Route/Sig Max Daily Dose Days Date Category Dose Instructions Metformin Hcl 500 Mg Tablet 500 Mg PO BIDWMEALS 08/24/21 Reported Novolog (Insulin Aspart) 100 Unit/1 Ml Cartridge 7 Unit SQ QIDACHS 08/24/21 Reported Lidocaine 15 Gm Cream..g. 1 Boo TP TID 30 08/24/21 Reported Lidocaine PATCH (Lidocaine) 1 Each Adh..patch 1 Each TP DAILY 08/24/21 Reported REMOVE AFTER 12 HOURS Levemir (Insulin Detemir) 100 Unit/1 Ml Vial 20 Unit SQ HS 08/24/21 Reported Tizanidine Hcl 4 Mg Tablet 1 Tab PO Q8HRS PRN 09/30/20 Reported Gabapentin 600 Mg Tablet 600 Mg PO TID 09/30/20 Reported Atorvastatin Calcium 40 Mg Tablet 1 Tab PO QHS 05/17/20 Reported Amlodipine Besylate 10 Mg Tablet 10 Mg PO DAILY 05/17/20 Reported Metoprolol Succinate ( Xl ) (Metoprolol Succinate) 25 Mg Tab.er.24h 1 Tab PO DAILY 05/17/20 Reported Januvia (Sitagliptin Phosphate) 100 Mg Tablet 1 Tab PO DAILY 05/17/20 Reported Hydrochlorothiazide Tablet (Hydrochlorothiazide) 12.5 Mg Tablet 12.5 Mg PO DAILY 08/19/19 Reported ALLERGIES; Allergies: Coded Allergies: No Known Drug Allergies (Unverified , 01/15/17) FAMILY HISTORY: Family Hx: Cancer, diabetes SOCIAL HISTORY: Social Hx: Patient does not rachel alcohol does not smoke not use any illegal illicit recreational drugs is single lives locally in a [facility] REVIEW OF SYSTEMS: ROS: Positive for those items mentioned in history of present illness, all systems are reviewed, otherwise negative ,and are complete full and well-documented on patient's chart. PHYSICAL EXAM: VS: Blood pressure is 119/77 pulse 81 respirations 18 temperature 97.9 F height is 5 feet 6 inches weight is 150 pounds PE: PHYSICAL EXAMINATION: GENERAL: The patient is awake, alert, oriented, appropriate, very pleasant in demeanor HEENT: Shows normocephalic, atraumatic. Extraocular movements are intact and symmetrical. Patient wearing eyeglasses. Oral cavity: Mucous membranes moist and pink. NECK: Shows anterior throat supple without palpable lymphadenopathy noted. Swallow reflex symmetrical. CHEST: Shows normal on inspection. Breath sounds are clear bilaterally, distant but no rales rhonchi or wheezes auscultated. HEART: Shows S1, S2 clear. No murmurs auscultated. ABDOMEN: Soft, nontender, nondistended. No palpable organomegaly is noted. BACK: Shows spine grossly in the midline. Normal-appearing cervical lordotic curvature. There is slightly increased thoracic kyphosis, some minor flattening of the lumbar lordotic curvature. Thoracic paraspinous muscles show symmetrical inspection on palpation some significant tenderness in the mid upper distribution of the left paraspinous musculature compared to the right but without asymmetry without trigger points or radiation. Patient shows good rotation motion of the thoracic spine both laterally as well as extension flexion with some moderate tenderness with extension but not with forward flexi on. Lumbar paraspinous muscles show symmetrical on inspection, on palpation shows some moderate tenderness diffusely throughout the upper, middle and lower distribution of the paraspinous muscles bilaterally and also into the lower thoracic paraspinous musculature, firm and tender, but without specific trigger points, without radiation of pain. The patient has good rotational motion of the lumbar spine, both laterally as well as extension and flexion without significant difficulty. No tenderness over the spinous processes, sacrum or sacroiliac regions. EXTREMITIES: Lower extremities show deep tendon reflexes 1+ in the patellar and tendo calcaneus tendons. Motor exam is 4 on a scale of 5 with right dorsiflexion, extension, quadriceps and hamstring flexion and 4/5 on the left. Peripheral pulses are 1 posterior tibial. No peripheral edema is noted bilaterally. Lower extremities are warm and dry to touch, equal in color and appearance. Upper extremities show deep tendon reflexes 2+ in the bicep tricep tendons, motor exam strong with cold working supervisor strength bicep and tricep flexion rated 5 out of 5 and equal bilaterally. SKIN: Shows warm and dry, good turgor. No edema. No sores, rashes or bruising throughout. IMPRESSION: Impression: 66-year-old female with approximate 3-month history of pain mid upper back with radiation to the left thoracic distribution and radicular quality. MRI scan thoracic spine as noted Diabetes Hypertension Arthritis Plan: Options were discussed with the patient including conservative medical management physical therapies and interventional techniques. Patient like to pursue interventional techniques. We discussed a thoracic epidural steroid injections descriptions as well as anatomical models to describe the procedure. Risks were discussed including but not limited to: Bleeding, infection, possibility of epidural hematoma and subsequent neurological compromise, dural puncture, headaches, spinal cord and/or nerve damage, side effects of steroid medication, and poor results regarding pain control. Patient understands and wished to proceed. Patient will return to the clinic in approximately 2 weeks for follow-up, was counseled as to return appointment, activity level, and side effect to be aware of. Procedure is thoracic epidural steroid injection under local anesthetic using sterile prep and drape at the T7-8 level using C-arm fluoroscopic guidance in both AP and lateral views medications injected is 120 mg methylprednisolone +10mL preservative-free normal saline and 2 mL contrast- condition at discharge is stable patient tolerated procedure well had no complications. RUDOLPH SÁNCHEZ MD Aug 24, 2021 16:36
--- NOTE | 2021-08-24 16:36 | PDOC4 ---
Procedure Note: ICD 10 Code: ICD 10 Code: M54.14 M51.34 Procedure Note: Patient was consented for thoracic epidural steroid injection with fluoroscopic guidance. Risks were discussed including but not limited to: Bleeding, infection, possibility of epidural hematoma and subsequent neurological compromise, dural puncture, headaches, spinal cord and/or nerve damage, side effects of steroid medication, and poor results regarding pain control. Patient understands and wished to proceed. Procedure is thoracic epidural steroid injection under local anesthetic using sterile prep and drape at the T7-8 level using C-arm fluoroscopic guidance in both AP and lateral views medications injected is 120 mg methylprednisolone +10mL preservative-free normal saline and 2 mL contrast- condition at discharge is stable patient tolerated procedure well had no complications. RUDOLPH SÁNCHEZ MD Aug 24, 2021 16:36
== END | disposition home or self-care (01) ==
LOC: PNCL 14:22
PROVIDERS: ATTEND Anesthesiology
DX: M51.14 Intervertebral disc disorders with radiculopathy, thoracic region (principal); I10 Essential (primary) hypertension; E11.9 Type 2 diabetes mellitus without complications; M19.90 Unspecified osteoarthritis, unspecified site; K21.9 Gastro-esophageal reflux disease without esophagitis; Z79.84 Long term (current) use of oral hypoglycemic drugs; Z79.899 Other long term (current) drug therapy; Z98.890 Other specified postprocedural states; Z90.710 Acquired absence of both cervix and uterus
CPT/HCPCS: 62321; J1100; Q9965